=== PATIENT | female | born 1945 | race Caucasian/White ===

== ENCOUNTER 2017-12-12 02:43 | Outpatient (CLI) | payer MEDICARE, OTHER, SELFPAY ==
[2017-12-12 11:26] LABS: TSH 1.85 uIU/mL (0.358-3.74)
== END 2017-12-12 03:03 ==
PROVIDERS: PCP Family Medicine; Visit Provider Family Medicine
DX: E03.9 Hypothyroidism, unspecified (principal)
CPT/HCPCS: 36415; 84443

== ENCOUNTER → 2017-12-18 08:13 | Outpatient (BNVA) | payer MEDICARE, OTHER, SELFPAY | PROVIDERS: PCP Family Medicine; Visit Provider Nurse Practitioner Adult Health | DX: G43.009 Migraine without aura, not intractable, without status migrainosus (principal); R20.0 Anesthesia of skin; G44.40 Drug-induced headache, not elsewhere classified, not intractable | CPT/HCPCS: 64405; 99204; 99214; 99215 ==

== ENCOUNTER 2017-12-23 00:17 | Outpatient (CLI) | payer MEDICARE, OTHER, SELFPAY ==
--- NOTE | 2017-12-23 14:42 | DI.MRI_ITS ---
SYMPTOM/DIAGNOSIS: RUE NUMBNESS AND WEAKNESS, PARESTHESIAS RT UPPER EXTREMITY, R20.2 BRAIN MRI: Routine noncontrast examination was performed. Comparison head CT scan is . There is mild global cerebral atrophy. There are multiple areas of T 2 hyperintensity in the white matter on the FLAIR and T 2 weighted images, most consistent with small vessel ischemic disease. The diffusion weighted images show no evidence of an acute infarct. No evidence of intracranial hemorrhage is seen. No intracranial mass is appreciated. The ventricles are intact. The basilar cisterns are patent. The visualized paranasal sinuses are clear. The orbits and retro-orbital soft tissues are unremarkable. There is a flow void seen in the [place] of [place]. The pituitary gland is grossly unremarkable. IMPRESSION: Age related cerebral atrophy and small vessel ischemic disease. No evidence of an acute infarct.
== END 2017-12-23 00:37 ==
PROVIDERS: PCP Family Medicine; Visit Provider Nurse Practitioner Adult Health
DX: G31.1 Senile degeneration of brain, not elsewhere classified (principal); R20.0 Anesthesia of skin; R29.898 Other symptoms and signs involving the musculoskeletal system
CPT/HCPCS: 70551

== ENCOUNTER → 2018-01-06 08:50 | Outpatient (BNVA) | payer MEDICARE, OTHER, SELFPAY | PROVIDERS: PCP Family Medicine; Visit Provider Nurse Practitioner Adult Health | DX: G43.009 Migraine without aura, not intractable, without status migrainosus (principal); R53.1 Weakness | CPT/HCPCS: 99213 ==

== ENCOUNTER 2018-01-14 01:27 | Outpatient (CLI) | payer MEDICARE, OTHER, SELFPAY ==
--- NOTE | 2018-01-14 08:53 | DI.NM_ITS ---
SYMPTOMS/DIAGNOSIS: GASTROESOPHAGEAL REFLUX DISEASE, ESOPHAGITIS, K21.9, ? BILIARY DYSKINESIA HEPATOBILIARY SCAN: The examination was carried out according to the usual protocol with an intravenous administration of 4.8 mCi of technetium 99m Mebrofenin. The hepatic phase is normal. There is prompt appearance of the radiopharmaceutical in the biliary tree and subsequently the gallbladder with free flow into the small bowel. SUMMARY: Normal hepatobiliary scan.
== END 2018-01-14 01:47 ==
PROVIDERS: PCP Family Medicine; Visit Provider Nurse Practitioner Family
DX: K21.9 Gastro-esophageal reflux disease without esophagitis (principal); K20.9 Esophagitis, unspecified
CPT/HCPCS: 78227

== ENCOUNTER 2018-01-14 08:29 | Outpatient (REF) | payer MEDICARE, OTHER, SELFPAY ==
[2018-01-15 11:39] LABS: Campylobacter PCR SEE COMMENTS; Salmonella PCR SEE COMMENTS; Shiga Toxin PCR SEE COMMENTS; Shigella/Enteroinvasive Ecoli SEE COMMENTS
[2018-01-16 12:15] LABS: Helicobacter pylori Ag, Feces Negative (NEGAT)
[2018-01-17 14:37] LABS: Calprotectin 39.1 mcg/g
== END 2018-01-14 08:49 ==
LOC: LBN 08:29
PROVIDERS: PCP Family Medicine; Visit Provider Nurse Practitioner Family
DX: K21.9 Gastro-esophageal reflux disease without esophagitis (principal); R10.10 Upper abdominal pain, unspecified; K58.0 Irritable bowel syndrome with diarrhea
CPT/HCPCS: 87338; 87505; 83993; 87230; 87324

== ENCOUNTER 2019-01-19 02:13 | Outpatient (CLI) | payer MEDICARE, OTHER, SELFPAY ==
[2019-01-19 10:58] LABS: Abs Immature Grans 0.02 k/cumm (0.0-0.09); Absolute Basophil Count 0.06 k/cumm (0.0-0.2); Absolute Eosinophil Count 0.29 k/cumm (0.0-0.7); Absolute Monocyte Count 0.45 k/cumm (0.11-0.7); Absolute Neutrophil Count 3.72 k/cumm (1.2-6.7); Basophils % 0.9; Eosinophils % 4.6; HCT 43.2 % (36.0-46.0); HGB 13.5 g/dL (12.0-15.5); Immature Grans % 0.3; Lymphocytes % 28.4; Mean Corp. HGB Concentration 31.3 g/dL (32.0-36.0); Mean Corpuscular Hemoglobin 27.9 pg (27.0-33.0); Mean Corpuscular Volume 89.3 fL (80-95); Mean Platelet Volume 9.2 fL (8.0-11.0); Monocytes % 7.1; Neutrophils % 58.7; Platelet Count 320 x1000/uL (130-400); RBC 4.84 m/cumm (4.00-5.20); RBC Distribution Width 14.2 % (11.7-14.6); White Blood Cell Count 6.34 k/cumm (4.4-10.8)
[2019-01-19 11:26] LABS: ALT 19 U/L (14-59); AST 17 U/L (15-37); Albumin 3.5 g/dL (3.4-5.0); Alkaline Phosphatase 92 U/L (46-116); Anion Gap 6.2 mmol/L (3-11); BUN 11 mg/dL (7-18); Bilirubin, Total 0.3 mg/dL (0.2-1.0); CO2 30.8 mmol/L (21.0-32.0); Chloride 105 mmol/L (98-107); Glucose 89 mg/dL (70-100); Potassium 4.7 mmol/L (3.5-5.1); Sodium 142 mmol/L (136-145); Total Protein 6.8 g/dL (6.4-8.2)
== END 2019-01-19 02:33 ==
PROVIDERS: PCP Family Medicine; Visit Provider Family Medicine
DX: F32.9 Major depressive disorder, single episode, unspecified (principal); R53.83 Other fatigue; G43.909 Migraine, unspecified, not intractable, without status migrainosus
CPT/HCPCS: 36415; 80053; 84443; 85025

== ENCOUNTER 2019-02-09 10:27 | Outpatient (REF) | payer MEDICARE, OTHER, SELFPAY ==
[2019-02-10 11:49] LABS: Campylobacter PCR Negative (Negative); Salmonella PCR Negative (Negative); Shiga Toxin PCR Negative (Negative); Shigella/Enteroinvasive Ecoli Negative (Negative)
== END 2019-02-09 10:47 ==
LOC: LBN 10:27
PROVIDERS: PCP Family Medicine; Visit Provider Nurse Practitioner Family
DX: K58.9 Irritable bowel syndrome, unspecified (principal)
CPT/HCPCS: 87329; 87505; 87324

== ENCOUNTER 2019-03-16 11:45 | Outpatient (CLI) | payer MEDICARE, OTHER, SELFPAY ==
[2019-03-16 13:29] LABS: TSH 0.04 uIU/mL (0.36-3.74)
== END 2019-03-16 12:05 ==
PROVIDERS: PCP Family Medicine; Visit Provider Family Medicine
DX: E03.9 Hypothyroidism, unspecified (principal)
CPT/HCPCS: 36415; 84443

== ENCOUNTER 2019-04-30 07:35 | Outpatient (CLI) | payer MEDICARE, OTHER, SELFPAY ==
[2019-04-30 12:32] LABS: TSH 0.23 uIU/mL (0.36-3.74)
== END 2019-04-30 07:55 ==
PROVIDERS: PCP Family Medicine; Visit Provider Family Medicine
DX: E03.9 Hypothyroidism, unspecified (principal)
CPT/HCPCS: 36415; 84443

== ENCOUNTER 2019-06-10 08:02 | Outpatient (CLI) | payer MEDICARE, OTHER, SELFPAY ==
--- NOTE | 2019-06-10 08:30 | DI.RAD_ITS ---
EXAM: XR SHOULDER LT COMPLETE 2+V CLINICAL HISTORY: fall on left shoulder 3-4 weeks ago/pain ++.M25.512. TECHNIQUE: 2D digital imaging was performed. COMPARISON: RIGHT SHOULDER 1 VIEW from 02/06/2013 FINDINGS: Prior rotator cuff tear and distal clavicular resection is seen. There is spurring at the glenoid. The humeral head appears normally positioned. Visualized portions of the left ribs are unremarkable. IMPRESSION: Postsurgical and degenerative changes.. DATA REPOSITORY: RADIATION DOSE DELIVERED:
[2019-06-10 09:31] LABS: TSH 3.47 uIU/mL (0.36-3.74)
== END 2019-06-10 08:22 ==
PROVIDERS: PCP Family Medicine; Visit Provider Family Medicine
DX: M25.512 Pain in left shoulder (principal); E03.9 Hypothyroidism, unspecified; Z98.890 Other specified postprocedural states; Z91.81 History of falling
CPT/HCPCS: 36415; 73030; 84443

== ENCOUNTER 2019-10-09 03:28 | Outpatient (CLI) | payer MEDICARE, OTHER, SELFPAY ==
[2019-10-09 11:35] LABS: HCT 43.2 % (36.0-46.0); HGB 13.7 g/dL (12.0-15.5); Mean Corp. HGB Concentration 31.7 g/dL (32.0-36.0); Mean Corpuscular Hemoglobin 28.4 pg (27.0-33.0); Mean Corpuscular Volume 89.4 fL (80-95); Mean Platelet Volume 9.1 fL (8.0-11.0); Platelet Count 316 x1000/uL (130-400); RBC 4.83 m/cumm (4.00-5.20); RBC Distribution Width 13.9 % (11.7-14.6)
[2019-10-09 12:22] LABS: Iron 62 ug/dL (50-170); Total Iron Binding Capacity 319 ug/dL (250-450); Transferrin Sat 19 % (15-50)
[2019-10-09 12:35] LABS: Ferritin 30 ng/mL (8-252); Magnesium 2.4 mg/dL (1.8-2.4); TSH 0.58 uIU/mL (0.36-3.74)
== END 2019-10-09 03:48 ==
PROVIDERS: PCP Family Medicine; Visit Provider Family Medicine
DX: Z86.2 Personal history of diseases of the blood and blood-forming organs and certain disorders involving the immune mechanism (principal); E83.42 Hypomagnesemia; E03.9 Hypothyroidism, unspecified; R53.83 Other fatigue
CPT/HCPCS: 36415; 85027; 82728; 83540; 83550; 83735; 84443

== ENCOUNTER 2020-02-11 19:36 | Emergency (ER) | payer MEDICARE, OTHER, SELFPAY ==
[2020-02-11 19:41] VITALS: BP 181/66; PULSE 104; RESP 19; TEMP 36.8; O2SAT 98
[2020-02-11] MEDS: Ibuprofen 600 MG TAB PO (20:01)
--- NOTE | 2020-02-11 20:16 | W.ED.GENAD ---
Discharge Plan Disposition Patient Disposition: HOME Condition: Stable Discharge Details Clinical Impression: Avulsion fracture of ankle Primary Care Provider: Natalie Hoang ED Provider: Isa Jansen Home Meds and New Rx's Prescriptions: Continued sumatriptan succinate 100 mg tablet See Rx Instructions PO .COMPLEX Qty: 20 RF: 4 rabeprazole 20 mg tablet,delayed release (DR/EC) 20 mg PO BID Qty: 180 RF: 4 famotidine 20 mg tablet 20 mg PO QHS Qty: 90 RF: 1 acetaminophen [Mapap (acetaminophen)] 500 MG capsule 500 - 1,000 mg PO Q6H PRN PRNRF: 0 levothyroxine 75 mcg capsule 75 mcg PO DAILY Qty: 20 RF: 0 Discharge Instructions Instructions: Avulsion Fracture (ED) Additional Instructions: Wear ankle splint for support Crutches for non-weightbearing Elevate your leg is much as possible throughout the day to reduce swelling apply ice 20 minutes 4-5 times daily for the first 2 days then you can use heat or ice You can add ibuprofen 600 mg 4 times daily with food for the next 5 days then as needed for pain Referrals: ORTHOPAEDICS,[facility] [OTHER] - (call in am for a follow up appointment) Natalie Hoang MD [Primary Care Provider] - Medical Decision Making Mechanical fall. Tylenol prior to arrival. X-ray to right ankle and foot. Ice pack applied. Provided 600 mg oral ibuprofen xray ankle and foot right: IMPRESSION: No fractures or dislocations within right ankle. Likely small avulsion fracture involving calcaneus. Small osseous fragment adjacent to the calcaneus, best seen on frontal view, likely an avulsion fracture. No other acute fractures identified. ankle splint applied, crutches for non weight bearing. will f/u with ortho Medical Records Medical records reviewed: Yes I reviewed the patient's medical records. HPI General Mode of arrival: wheelchair. Date/Time Provider Initiated Documentation: 02/11/20 19:36. Limitations to Documentation: no limitations. Information obtained by: patient. HPI Narrative: This is a 75-year-old female patient who had a mechanical fall at home with injury to her right lateral ankle and foot. There were no other injuries noted. She is unable to bear weight due to the pain. There is no obvious deformity. She took acetaminophen prior to arrival with little improvement in her pain Related Data Home Medications Medication Instructions Recorded Confirmed acetaminophen [Mapap 500 - 1,000 mg PO Q6H PRN PRN 08/05/13 02/11/20 (acetaminophen)] tab-cap famotidine 20 mg tablet 20 mg PO QHS #90 tab 08/17/19 02/11/20 rabeprazole 20 mg tablet,delayed 20 mg PO BID #180 tab 08/17/19 02/11/20 release levothyroxine 75 mcg capsule 75 mcg PO DAILY #20 cap 10/10/19 02/11/20 sumatriptan succinate 100 mg tablet See Rx Instructions PO .COMPLEX 10/26/19 02/11/20 #20 tab Previous Rx's Medication Instructions Recorded famotidine 20 mg tablet 20 mg PO QHS #90 tab 08/17/19 rabeprazole 20 mg tablet,delayed 20 mg PO BID #180 tab 08/17/19 release levothyroxine 75 mcg capsule 75 mcg PO DAILY #20 cap 10/10/19 sumatriptan succinate 100 mg tablet See Rx Instructions PO .COMPLEX 10/26/19 #20 tab Allergies Allergy/AdvReac Type Severity Reaction Status Date / Time Penicillins Allergy Severe THROAT Verified 02/11/20 19:47 SWELLS General Stated Complaint: Orthopedic LES: 4 Review of Systems Constitutional Constitutional: Denies fever(s) ENT Ears, Nose, Mouth, and Throat: Denies vertigo and Denies dizziness Cardiovascular Cardiovascular: Denies syncope, Denies lightheadedness and Denies dyspnea Respiratory Respiratory: Denies cough and Denies dyspnea Gastrointestinal Gastrointestinal: Denies abdominal pain and Denies nausea Musculoskeletal Musculoskeletal: Reports abnormal gait, Denies deformity, Reports arthralgias, Reports numbness and Reports tingling Integumentary/Breasts Skin/Breast: Denies rash and Denies sores Neurologic Neurologic: Reports abnormal gait, Denies vertigo, Denies dizziness, Denies syncope, Reports numbness and Reports tingling [facility] Medical History (Updated 02/11/20 @ 20:50 by Isa Jansen NP) Depressive disorder (07/17/07) GERD (gastroesophageal reflux disease) H/O gastroesophageal reflux (GERD) Hypothyroidism Low back pain radiating to both legs (12/09/14) mri : left neural foraminal narrowing L5S1/apparent syrinx of lower thoracic cord- no resp. PT/ :no spinal stenosi/not sx Migraine headache Musculoskeletal disorder of neck (06/22/13) Neck fullness (11/25/13) right scalene fat pad/ eval. [facility] Obstructive sleep apnea (08/12/15) 2018 pt declines fup Periodic limb movement disorder (08/12/15) Rotator cuff tear (01/26/13) Repair right rotator cuff by Dr. Liam Garcia 01-26-2013. Status post left rotator cuff repair with AC joint decompression with distal clavical excision 01/27/2008. S/P subsequent left shoulder manipulation post surgery to relieve her restrictive motion. S/P right shoulder manipulation on 10-22-2012 for adhesive capsulitis. Surgical History Abdominal hysterectomy 1967 EGD - MAC 01/21/14 [facility] extraction of teeth approx 1952 Laser eye surgery Right, 2002. Repair, Rotator Cuff left, December, Shoulder Manipulation (10/22/12) Right Family History (Updated 01/15/19 @ 10:20 by Charanjit Serna) Mother , age 72 Essential hypertension Breast cancer Sister , age 53 Breast cancer Lung cancer Sister , age 74 Liver cancer Lung cancer Father , age 72 Lung cancer Brother Diabetes Essential hypertension Heart disease Maternal Grandfather , age 72 Lung cancer Pancreatic cancer Paternal Grandfather , age 42 Heart disease Maternal Grandmother , age 81 Diabetes Essential hypertension Stroke Breast cancer Paternal Grandmother No problems noted. Son No problems noted. Daughter No problems noted. Daughter No problems noted. Social History (Updated 01/15/19 @ 10:07 by Charanjit Serna) Smoking/Tobacco Use Status: Never Smoking risk assessment performed?: Yes Alcohol Intake: never Drug use: Never Substance use type: does not use Caregiver/Support person: No Household members: spouse Housing: house Communication Needs: None Do you need help understanding health information?: Rarely Pets and animals: No Sexually active: No Current gender identity: decline to answer What is your relationship status?: How often do you talk on the phone with friends or family?: three or more times per week How often do you get together with friends or relatives?: three or more times per week How often do you attend sikh or anabaptism services?: decline to answer Do you belong to any clubs or organized social groups?: yes Panel score (0-1 are the most socially isolated patients): 3 What type of physical activity do you participate in: decline to answer Duration: decline to answer Frequency: decline to answer Irene/Orthodoxy: Taoism Special irene needs: No Seatbelt use: always Helmet use: Yes Helmet use: sometimes 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 Do you feel safe at home: Yes Do you feel safe in your relationship?: Yes Exam Const General: cooperative, healthy appearing, comfortable and no acute distress HENMT Head: normal to inspection, normocephalic and atraumatic Mouth: oral mucosae normal Cardio Rate: regular rate (Strong pedal pulse) Rhythm: regular rhythm Skin General skin exam: ecchymosis (Over fifth metatarsal) Lesions: lesions noted Rashes: rash noted Neuro General: patient alert, patient awake, patient oriented x3 and moves all extremities Extrem Right lower extremity: edema, ankle Details: swelling Details: laterally and ecchymosis and foot Details: edema and ecchymosis (Laterally) Course Vital Signs Vital signs: Vital Signs Temperature 36.8 C 02/11/20 19:41 Pulse 104 H 02/11/20 19:41 Respiratory Rate 02/11/20 19:41 Blood Pressure 181/66 H 02/11/20 19:41 Pulse Oximetry 98 02/11/20 19:41 Temperature 36.8 C 02/11/20 19:41 Temperature Source Skin 02/11/20 19:41 Pulse 104 H 02/11/20 19:41 Respiratory Rate 19 02/11/20 19:41 Respiratory Effort Non-Labored 02/11/20 19:45 Blood Pressure 181/66 H 02/11/20 19:41 Blood Pressure Position Sitting 02/11/20 19:41 Pulse Oximetry 98 02/11/20 19:41 Oxygen Delivery Method Room Air 02/11/20 19:41 Oxygen Flow Rate 0 02/11/20 19:41 Pain Level 7 02/11/20 20:01
--- NOTE | 2020-02-11 20:22 | DI.RAD_ITS ---
EXAM: XR ANKLE RT COMPLETE and XR foot RT complete CLINICAL HISTORY: trauma, pain. TECHNIQUE: 2D digital imaging was performed. COMPARISON: CR,XR XR FOOT RT COMPLETE from 02/11/2020 FINDINGS: BONES: There is a mildly displaced fracture of the anterolateral aspect of the calcaneus. No other f racture or dislocation is identified. No bony destructive lesion is seen. JOINTS: The ankle mortise is normally aligned. Mild degenerative changes are seen at the 1st MTP join t. SOFT TISSUE: Normal. IMPRESSION: Mildly displaced fracture of the anterolateral aspect of the calcaneus. DATA REPOSITORY: RADIATION DOSE DELIVERED:
--- NOTE | 2020-02-11 20:35 | DI.VRAD_ITS ---
PROCEDURE INFORMATION: Exam: XR Right Foot Complete Exam date and time: 02/11/2020 8:23 PM Age: 75 years old Clinical indication: Injury or trauma; Sprain or strain; Injury date: 02/11/20; Injury details: [place] a pop in right ankle/foot TECHNIQUE: Imaging protocol: XR Right foot. Views: 3 or more views. COMPARISON: No relevant prior studies available. FINDINGS: Bones/joints: Osseous fragment adjacent to the calcaneus, seen on the frontal view, lateral aspect, likely small avulsion fracture. Os navicularis versus old fracture of the navicular bone. Degenerative changes at the 1st MTP joint. Soft tissues: Grossly unremarkable. IMPRESSION: Small osseous fragment adjacent to the calcaneus, best seen on frontal view, likely an avulsion fracture. No other acute fractures identified. Dictated and Authenticated by: Piero Lang MD. Ordering:MARYBETH Moss MD
--- NOTE | 2020-02-11 20:38 | DI.VRAD_ITS ---
PROCEDURE INFORMATION: Exam: XR Right Ankle Exam date and time: 02/11/2020 7:51 PM Age: 75 years old Clinical indication: Injury or trauma; Sprain or strain; Injury date: 02/11/20; Injury details: [place] a pop in right ankle/foot TECHNIQUE: Imaging protocol: XR Right ankle. Views: 3 or more views. COMPARISON: No relevant prior studies available. FINDINGS: Bones/joints: Likely small avulsion fracture of the calcaneus, lateral aspect. No fractures or dislocations within the right ankle. Soft tissues: Mild swelling/infiltration of the soft tissues distal to the lateral malleolus. IMPRESSION: No fractures or dislocations within right ankle. Likely small avulsion fracture involving calcaneus. Dictated and Authenticated by: Piero Lang MD. Ordering:MARYBETH Moss MD
[2020-02-11 20:42] VITALS: BP 159/71; PULSE 88; O2SAT 95
[2020-02-11 20:43] VITALS: O2SAT 95
[2020-02-11 20:47] VITALS: BP 163/77; PULSE 85; O2SAT 96
== END 2020-02-11 21:05 | disposition home or self-care (01) ==
PROVIDERS: Emergency Provider Nurse Practitioner Acute Care; PCP Family Medicine
DX: S92.021A Displaced fracture of anterior process of right calcaneus, initial encounter for closed fracture (principal); W07.XXXA Fall from chair, initial encounter
CPT/HCPCS: 99284; 73610; 73630

== ENCOUNTER → 2020-02-18 10:49 | Outpatient (BNVA) | payer MEDICARE, OTHER, SELFPAY | PROVIDERS: PCP Family Medicine; Referring Provider Student in an Organized Health Care Education/Training Program; Visit Provider Orthopaedic Surgery | DX: S92.001A Unspecified fracture of right calcaneus, initial encounter for closed fracture (principal); X50.9XXA Other and unspecified overexertion or strenuous movements or postures, initial encounter | CPT/HCPCS: 99213; 99214 ==

== ENCOUNTER 2020-03-18 11:57 | Outpatient (CLI) | payer MEDICARE, OTHER, SELFPAY | END 2020-03-18 12:17 | PROVIDERS: PCP Family Medicine; Referring Provider Family Medicine; Visit Provider Student in an Organized Health Care Education/Training Program | DX: S92.001D Unspecified fracture of right calcaneus, subsequent encounter for fracture with routine healing (principal); X58.XXXD Exposure to other specified factors, subsequent encounter | CPT/HCPCS: 99213 ==

== ENCOUNTER 2020-11-03 04:45 | Outpatient (CLI) | payer MEDICARE, OTHER, SELFPAY ==
[2020-11-03 10:04] LABS: HCT 44.4 % (36.0-46.0); HGB 13.7 g/dL (11.2-15.7); MCH 28.3 pg (27.0-33.0); MCHC 30.9 % (32.0-36.0); MCV 91.7 fL (80-95); MPV 8.9 fL (8.0-11.0); Platelet Count 266 10^3/uL (130-400); RBC 4.84 10^6/uL (3.93-5.22); RDW 13.2 % (11.7-14.6); RDW-SD 44.9 fL; WBC 7.36 10^3/uL (4.4-10.8)
[2020-11-03 11:38] LABS: Iron 73 ug/dL (50-170); Total Iron Binding Capacity 343 ug/dL (250-450); Transferrin Sat 21 % (15-50)
[2020-11-03 11:44] LABS: ALT 21 U/L (14-59); AST 17 U/L (15-37); Albumin 3.7 g/dL (3.4-5.0); Alkaline Phosphatase 89 U/L (46-116); Anion Gap 7.9 mmol/L (3-11); BUN 9 mg/dL (7-18); Bilirubin, Total 0.3 mg/dL (0.2-1.0); CO2 30.1 mmol/L (21.0-32.0); CREATININE 0.8 mg/dL (0.55-1.02); Calcium 8.9 mg/dL (8.5-10.1); Chloride 105 mmol/L (98-107); Ferritin 51 ng/mL (8-252); GGT 24 U/L (5-55); Glucose 91 mg/dL (74-106); Magnesium 2.3 mg/dL (1.8-2.4); Potassium 4.5 mmol/L (3.5-5.1); Sodium 143 mmol/L (136-145); TSH 1.93 uIU/mL (0.36-3.74); Total Protein 6.8 g/dL (6.4-8.2)
== END 2020-11-03 04:46 | disposition home or self-care (01) ==
LOC: LBO 04:45
PROVIDERS: PCP Family Medicine; Visit Provider Family Medicine
DX: E03.9 Hypothyroidism, unspecified (principal); E61.1 Iron deficiency; E83.42 Hypomagnesemia; R10.9 Unspecified abdominal pain; K21.9 Gastro-esophageal reflux disease without esophagitis
CPT/HCPCS: 36415; 80053; 85027; 82728; 82977; 83540; 83550; 83735; 84443

== ENCOUNTER 2021-09-01 19:18 | Emergency (ER) | payer MEDICARE, OTHER, SELFPAY ==
[2021-09-01] VITALS (43 sets, daily range): BP systolic 114–162; BP diastolic 61–91; PULSE 86–112; RESP 9–24; TEMP 37.1; O2SAT 93–99
--- NOTE | 2021-09-01 19:37 | W.ED.GENAD ---
Discharge Plan Disposition Patient Disposition: HOME Condition: Stable Discharge Details Clinical Impression: URI (upper respiratory infection), Nausea Primary Care Provider: Dinora Fan ED Provider: Sonam Breen Home Meds and New Rx's Prescriptions: New ondansetron 4 mg tablet,disintegrating 4 mg PO Q6H PRN (Reason: nausea and vomiting) Qty: 10 0RF benzonatate 100 mg capsule 100 mg PO TID PRN (Reason: cough) Qty: 14 0RF Continued Shingrix (PF) 50 mcg/0.5 mL suspension for reconstitution 0.5 ml IM ONCE Qty: 1 1RF Rx Instructions: take the first dose and repeat 2 to 6 months later sumatriptan succinate 100 mg tablet See Rx Instructions PO .COMPLEX Qty: 20 4RF Rx Instructions: take 1 tab at onset of headache; if no relief, may repeat 1 tab after at least 2 hrs; max = 2 tabs/24 hrs PO amlodipine 5 mg tablet 5 mg PO DAILY Qty: 90 3RF levothyroxine 75 mcg capsule 75 mcg PO DAILY Qty: 90 3RF Rx Instructions: take one capsule daily rabeprazole 20 mg tablet,delayed release (DR/EC) 20 mg PO BID Qty: 180 3RF Rx Instructions: take one tablet twice a day No Action nystatin 100,000 unit/mL suspension 500,000 unit buccal QID Qty: 480 0RF Rx Instructions: administer 1/2 of dose in each side of the mouth, hold in mouth as long as possible, then spit Discharge Instructions Instructions: Benzonatate (By mouth), Ondansetron (By mouth), Upper Respiratory Infection (ED), Acute Nausea and Vomiting (ED) Additional Instructions: Your labs and imaging are reassuring here today. Your COVID-negative. Is likely viral illness. Please continue to encourage hydration. You may use Tylenol and/or ibuprofen as needed for discomfort. You may use the Tessalon Perles to help with cough. Zofran as prescribed to help with your nausea. If you develop chest pain or shortness of breath, inability stay hydrated or other new/worsening symptom please seek care urgently once again. Otherwise, please follow-up with primary care next week for reevaluation. Referrals: Dinora Fan MD [Primary Care Provider] - Discharge Data Discharge Date/Time-TO BE ENTERED AT DEPARTURE: 09/01/21 23:54 Medical Decision Making Patient is a pleasant 76-year-old female presenting today with chief complaint of nausea, vomiting, cough, fatigue, sore throat general malaise. She reports that symptoms began 6 days ago. Initially was having nausea and vomiting last weekend. States the first day of vomiting the vomit was darker in color. No masoud red blood. Denies any since then. No melena or bright red blood per rectum. States that she chronically has abdominal pain, this has been unchanged. She associates with significant GERD for which she [place] [facility] [place] No change or missed doses of her GERD medication. She denies any fevers or chills. States that she has been slightly short of breath associated with cough. Patient was initially seen at urgent care, sent patient was noted to appear slightly dehydrated tachycardia epigastric discomfort. She describes general body aches for which she has not taken any analgesics. On exam, patient appears unwell but not acutely toxic. She appears dehydrated and has dry cough. She is tachycardic at 112 but otherwise hemodynamically stable. Dry on ENT exam, otherwise normal. Lungs cleear, no murmurs. Abdomen tender in epigastric area which she states in unchagned from GI palpates. No LE edema Paitent's hx and exam is most consistent with respiratory infection. No SOB or signficant risk factors for PE, nor does the rest of her story support this. She has had her cough for 6 days, non exertion, low suspicion for ACS. Her lungs are clear but considered infectious etiology such as bacterial pneumonia and iwll obtaitn cxr. Will hydrate the patient. Tamar abdominal discomfort appears to be chronic. However, location and nausea does put pancreatitis on my ddx, will screen with lipase. will give PPI. FINDINGS: Airway: Patent Lungs: Unremarkable. No consolidation. Pleural spaces: Unremarkable. No pleural effusion. No pneumothorax. Heart/Mediastinum: Unremarkable. No cardiomegaly. Bones/joints: Tendon anchors in the right humeral head and left humeral head. No acute skeletal abnormality or aggressive osseous lesion. Bilateral distal clavicular osteolysis is noted. IMPRESSION: No acute thoracic pathology. Labs reviewed, no signficant abnormality. Given length of time and lack of CP, I do not see need for repeat troponin. Her HR is down after APAP, fluids and PPI. Will challenge orally. Patient and I discussed disposition. at bedside who seems very supportive. She is eager to go home, feels improved. She will continue supportive care. Strict return precautions discussed. Advised lose f/u with PCP. Will continue with zofran if her nausea returns. All of her questions and concerns were addressed, sh eis in agreement with this plan. HPI General Date/Time Provider Initiated Documentation: 09/01/21 19:21. Limitations to Documentation: no limitations. Information obtained by: patient, family and RN notes reviewed. History of Present Illness 76 year old F presents to the emergency department with the chief complaint of URI, malaise, chronic abdominal pain, described as moderate, Quality is described as aching (abdomen is uncomfortable but no acute change in pain, is here for her URI sxs), and is localized to the abdomen. Patient reports no radiation. Patient started experiencing this unknown (abdominal pain chronic, unchanged, URI x 6 days) and it has been intermittent. No relieving factors improve symptom(s), No exacerbating factors reported . Patient notes cough, loss of appetite, malaise and nausea/vomiting; denies chest pain, fever/chills, rash, shortness of breath and weakness. Patient did receive the following treatments prior to arrival, none Related Data Home Medications Medication Instructions Recorded Confirmed varicella-zoster glycoE [id number] 0.5 ml IM ONCE #1 ea 10/31/20 09/06/21 adj(PF) 50 mcg/0.5 mL IM susp, kit (Shingrix (PF)) amlodipine 5 mg tablet 5 mg PO DAILY #90 tabs 05/02/21 09/06/21 levothyroxine 75 mcg capsule 75 mcg PO DAILY #90 caps 06/30/21 09/06/21 sumatriptan succinate 100 mg tablet See Rx Instructions PO .COMPLEX 07/31/21 09/06/21 #20 tabs rabeprazole 20 mg tablet,delayed 20 mg PO BID #180 tabs 08/29/21 09/06/21 release benzonatate 100 mg capsule 100 mg PO TID PRN cough #14 caps 09/01/21 09/06/21 ondansetron 4 mg disintegrating 4 mg PO Q6H PRN nausea and 09/01/21 09/06/21 tablet vomiting #10 tabs nystatin 100,000 unit/mL oral 500,000 unit (5 mL) buccal QID 09/04/21 09/06/21 suspension #480 mL Previous Rx's Medication Instructions Recorded varicella-zoster glycoE vacc-[id number] 0.5 ml IM ONCE #1 ea 10/31/20 adj(PF) 50 mcg/0.5 mL IM susp, kit (Shingrix (PF)) amlodipine 5 mg tablet 5 mg PO DAILY #90 tabs 05/02/21 levothyroxine 75 mcg capsule 75 mcg PO DAILY #90 caps 06/30/21 sumatriptan succinate 100 mg tablet See Rx Instructions PO .COMPLEX 07/31/21 #20 tabs rabeprazole 20 mg tablet,delayed 20 mg PO BID #180 tabs 08/29/21 release benzonatate 100 mg capsule 100 mg PO TID PRN cough #14 caps 09/01/21 ondansetron 4 mg disintegrating 4 mg PO Q6H PRN nausea and 09/01/21 tablet vomiting #10 tabs nystatin 100,000 unit/mL oral 500,000 unit (5 mL) buccal QID 09/04/21 suspension #480 mL Allergies Allergy/AdvReac Type Severity Reaction Status Date / Time Penicillins Allergy Severe THROAT Verified 09/06/21 16:24 SWELLS General Stated Complaint: GenMedical LES: 3 Review of Systems Constitutional Constitutional: Reports as per HPI and Denies headache(s) Eyes Eyes: Reports as per HPI, Denies eye discharge and Denies irritation ENT Ears, Nose, Mouth, and Throat: Reports as per HPI and Denies headache(s) Cardiovascular Cardiovascular: Reports as per HPI, Denies chest pain and Denies dyspnea Respiratory Respiratory: Reports as per HPI and Denies dyspnea Gastrointestinal Gastrointestinal: Reports as per HPI Integumentary/Breasts Skin/Breast: Reports as per HPI and Denies rash Neurologic Neurologic: Reports as per HPI and Denies headache(s) [facility] All Active Problems (Updated 09/06/21 @ 18:06 by Nikko Lambert MD) Essential hypertension (Acute) Sliding hiatal hernia (Acute ~01/2018[place] [facility] Periodic limb movement disorder (Acute 08/12/15) Obstructive sleep apnea (Chronic 08/12/15) 2018 pt declines fup Neck fullness (Acute 11/25/13) right scalene fat pad/ eval. [facility] Low back pain radiating to both legs (Acute 12/09/14) mri : left neural foraminal narrowing L5S1/apparent syrinx of lower thoracic cord- no resp. PT/ :no spinal stenosi/not sx Hypothyroidism (Chronic) Depressive disorder (Chronic 07/17/07) Migraine headache (Chronic) GERD (gastroesophageal reflux disease) (Chronic) Surgical History Abdominal hysterectomy 1967 EGD - MAC 01/21/[place] [facility] [place] of teeth approx 1952 Laser eye surgery Right, 2002. Repair, Rotator Cuff left, December, Shoulder Manipulation (10/22/12) Right Family History Mother , age 72 Essential hypertension Breast cancer Sister , age 53 Breast cancer Lung cancer Sister , age 74 Liver cancer Lung cancer Father , age 72 Lung cancer Brother Diabetes Essential hypertension Heart disease Maternal Grandfather , age 72 Lung cancer Pancreatic cancer Paternal Grandfather , age 42 Heart disease Maternal Grandmother , age 81 Diabetes Essential hypertension Stroke Breast cancer Paternal Grandmother No problems noted. Son No problems noted. Daughter No problems noted. Daughter No problems noted. Social History Smoking/Tobacco Use Status: Never Smoking risk assessment performed?: Yes Alcohol Intake: never Drug use: Never Substance use type: does not use Household members: spouse Housing: house Communication Needs: None Do you need help understanding health information?: Rarely Pets and animals: No Sexually active: No Current gender identity: female What is your relationship status?: How often do you talk on the phone with friends or family?: three or more times per week How often do you get together with friends or relatives?: twice per week How often do you attend pentecostalism or taoist services?: decline to answer Do you belong to any clubs or organized social groups?: yes Panel score (0-1 are the most socially isolated patients): 3 Irene/Congregation: Congregational Special irene needs: No Seatbelt use: always Drive intox or ride w/intox regional driver: No Do you feel safe at home: Yes Do you feel safe in your relationship?: Yes Exam Const General: cooperative, healthy appearing, uncomfortable (coughing, appears fatigued, no SOB), no acute distress, well developed, well groomed and not in distress Nutritional Appearance: well nourished and overweight Orientation: alert and awake [facility] Head: normal to inspection, normocephalic and atraumatic Ears: hearing grossly normal bilaterally, external ears normal and TM's normal bilaterally General nose exam: external nose normal and nares normal Face and sinus: normal facial exam, sinuses nontender and face symmetric Mouth: oral mucosae normal, lip normal, tongue normal, oropharynx normal and mucous membranes dry (appears dry) Teeth and gingiva: dentition normal Throat: posterior oropharynx normal, tonsils normal and uvula midline Eyes General: appearance normal, both eyes and all related structures Neck Neck: normal visual inspection, full ROM, no lymphadenopathy and no meningeal signs Resp Effort & Inspection: normal respiratory effort, able to speak in complete sentences and no respiratory distress Auscultation: clear to auscultation bilaterally, no rales, no rhonchi and no wheezes Cardio Rate: tachycardic Rhythm: regular rhythm Heart Sounds: S1 normal and S2 normal GI Inspection: normal to inspection Palpation: soft, no hepatosplenomegaly, no masses and tender in the epigastrum (mild discomfort, patient report chronic ); with no rebound tenderness Percussion: normal to percussion Auscultation: normal bowel sounds Skin General skin exam: no rashes or lesions noted Neuro General: patient alert and patient awake Cognition: normal cognition Speech: speech normal Gait: normal gait Extrem General: normal to inspection, no pedal edema, no calf tenderness and normal gait Psych Appearance: grossly normal and well kempt Mental Status: mental status grossly normal Speech and Movement: speech and movement normal Course Vital Signs Vital signs: Vital Signs Temperature 37.1 C 09/01/21 19:25 Pulse 112 H 09/01/21 19:25 Respiratory Rate 21 09/01/21 19:25 Blood Pressure 114/90 09/01/21 19:25 Pulse Oximetry 99 09/01/21 19:25 Temperature 37.1 C 09/01/21 19:25 Temperature Source Skin 09/01/21 19:25 Pulse 112 H 09/01/21 19:25 Respiratory Rate 21 09/01/21 19:25 Blood Pressure 114/90 09/01/21 19:25 Blood Pressure Position Sitting 09/01/21 19:25 Pulse Oximetry 99 09/01/21 19:25 Oxygen Delivery Method Room Air 09/01/21 19:25 Oxygen Flow Rate 0 09/01/21 19:25 Pain Level 0 09/01/21 19:25
--- NOTE | 2021-09-01 19:45 | DI.RAD_ITS ---
Exam(s) XR PORTABLE CHEST AP EXAM: XR PORTABLE CHEST AP CLINICAL HISTORY: cough. TECHNIQUE: 2D digital imaging was performed. COMPARISON: CR CHEST 2 VIEWS PA,LAT from 04/22/2013 FINDINGS: Single AP portable view. Evidence of rotator cuff surgery in both shoulders again noted. Heart size is upper normal. The mediastinum is not widened. Right lung is clear. Small nodular density behind the left side of the heart noted, not evident on t he prior study. No pleural effusions. No pulmonary edema IMPRESSION: In the left lung there is a noncalcified nodular density measuring 1.2 by 0.9 cm behind the left hear t border, not evident on the prior study. Recommend nonportable PA and lateral views when clinically possible or alternatively CT scan for added sensitivity and specificity. DATA REPOSITORY: RADIATION DOSE DELIVERED: All CT scans at this facility use at least one of these dose optimization techniques: automated exposure control; mA and/or kV adjustment per patient size (includes targeted e xams where dose is matched to clinical indication); or iterative reconstruction.
[2021-09-01 20:14] LABS: Source Nasal/Nares
[2021-09-01 20:32] LABS: ALT 26 U/L (14-59); AST 22 U/L (15-37); Albumin 3.5 g/dL (3.4-5.0); Alkaline Phosphatase 95 U/L (46-116); Anion Gap 6.2 mmol/L (3-11); BUN 9 mg/dL (7-18); Bilirubin, Total 0.2 mg/dL (0.2-1.0); CO2 28.8 mmol/L (21.0-32.0); CREATININE 0.9 mg/dL (0.55-1.02); Calcium 8.4 mg/dL (8.5-10.1); Chloride 105 mmol/L (98-107); Glucose 86 mg/dL (74-106); Magnesium 2.2 mg/dL (1.8-2.4); Potassium 3.8 mmol/L (3.5-5.1); Sodium 140 mmol/L (136-145); Total Protein 7.3 g/dL (6.4-8.2); Troponin I < 50 ng/L (<or=60)
[2021-09-01 20:33] LABS: Lipase 22 U/L (73-393)
[2021-09-01 20:44] LABS: Abs Immature Grans 0.02 10^3/uL (0.0-0.06); Absolute Basophil Count 0.03 10^3/uL (0.0-0.2); Absolute Eosinophil Count 0.13 10^3/uL (0.0-0.7); Absolute Lymphocyte Count 1.26 10^3/uL (1.2-3.4); Absolute Monocyte Count 0.75 10^3/uL (0.1-0.8); Absolute Neutrophil Count 2.85 10^3/uL (1.2-6.7); Basophils % 0.6; Eosinophils % 2.6; HCT 45.5 % (36.0-46.0); HGB 13.8 g/dL (11.2-15.7); Immature Grans % 0.4; MCH 27.7 pg (27.0-33.0); MCHC 30.3 % (32.0-36.0); MCV 91 fL (80-95); MPV 8.8 fL (8.0-11.0); Monocytes % 14.9; Neutrophils % 56.5; Platelet Count 206 10^3/uL (130-400); RBC 4.99 10^6/uL (3.93-5.22); RDW 13.5 % (11.7-14.6); WBC 5.04 10^3/uL (4.4-10.8)
[2021-09-01 21:11] LABS: COVID-19 PCR Negative (Negative)
--- NOTE | 2021-09-01 21:23 | DI.VRAD_ITS ---
PROCEDURE INFORMATION: Exam: XR Chest Exam date and time: 09/01/2021 8:36 PM Age: 76 years old Clinical indication: Cough TECHNIQUE: Imaging protocol: XR of the chest. Views: 1 view. COMPARISON: CR XR SHOULDER LT COMPLETE 2+V 06/10/2019 8:11 AM FINDINGS: Airway: Patent Lungs: Unremarkable. No consolidation. Pleural spaces: Unremarkable. No pleural effusion. No pneumothorax. Heart/Mediastinum: Unremarkable. No cardiomegaly. Bones/joints: Tendon anchors in the right humeral head and left humeral head. No acute skeletal abnormality or aggressive osseous lesion. Bilateral distal clavicular osteolysis is noted. IMPRESSION: No acute thoracic pathology. Dictated and Authenticated by: Rashard Flores MD. Ordering:JASON Masters MD
[2021-09-01] MEDS: Pantoprazole 40 MG VIAL IVP (21:48)
[2021-09-01] MEDS: Normal Saline 1,000 ML 1000 ML IV (21:48)
[2021-09-01] MEDS: ACETAMINOPHEN 1,000 MG/100 ML BTL 400 MG IVPB (21:48)
[2021-09-01] MEDS: Ondansetron 4 MG/2 ML VIAL IVP (21:48)
[2021-09-01 23:05] LABS: Troponin I < 50 ng/L (<or=60)
[2021-09-01] MEDS: Benzonatate 100 MG CAP PO (23:44)
[2021-09-01] MEDS: Ondansetron O.D.T. 4 MG TABEF, 3 TABS/BTL PO (23:44)
== END 2021-09-01 23:54 | disposition home or self-care (01) ==
PROVIDERS: Emergency Provider Physician Assistant; PCP Family Medicine
DX: R11.2 Nausea with vomiting, unspecified; J06.9 Acute upper respiratory infection, unspecified; R05.1 Acute cough
CPT/HCPCS: 36415; 80053; 83690; 87635; 96361; 96365; 99283; 99284; 71045; 83735; 84484; 85025; 87070; J0131; J2405

== ENCOUNTER 2021-11-03 01:09 | Outpatient (CLI) | payer MEDICARE, OTHER, SELFPAY ==
[2021-11-03 12:48] LABS: Anion Gap 8.2 mmol/L (3-11); BUN 10 mg/dL (7-18); CO2 27.8 mmol/L (21.0-32.0); CREATININE 0.7 mg/dL (0.55-1.02); Calcium 8.8 mg/dL (8.5-10.1); Chloride 104 mmol/L (98-107); Glucose 90 mg/dL (74-106); Potassium 4.3 mmol/L (3.5-5.1); Sodium 140 mmol/L (136-145); TSH (W/Ref FT4) 0.67 uIU/mL (0.36-3.74)
== END 2021-11-03 01:10 | disposition home or self-care (01) ==
LOC: LOS 01:09
PROVIDERS: PCP Family Medicine; Visit Provider Family Medicine
DX: E03.9 Hypothyroidism, unspecified (principal); I10 Essential (primary) hypertension
CPT/HCPCS: 36415; 80048; 84443

== ENCOUNTER 2022-09-15 22:51 | Day surgery (SDC) | payer MEDICARE, OTHER, SELFPAY ==
[2022-09-15] VITALS (10 sets, daily range): BP systolic 160–204; BP diastolic 80–112; PULSE 91–119; RESP 10–29; TEMP 36.4; O2SAT 95–98
--- NOTE | 2022-09-15 23:00 | DI.RAD_ITS ---
Exam(s) XR CHEST 1V IN DI DEPT EXAM: XR CHEST 1V IN DI DEPT CLINICAL HISTORY: chest pain. TECHNIQUE: 2D digital imaging was performed. COMPARISON: CR,XR XR PORTABLE CHEST AP from 09/01/[address] ABDOMEN PELVIS W from 09/16/2022 FINDINGS: Single AP portable view. Mild cardiomegaly again noted. Moderate-large retrocardiac hiatal hernia again evident. No obvious new infiltrates nor pleural effusions. No pulmonary edema. No pneumothorax. IMPRESSION: Mild cardiomegaly. No acute pulmonary findings. Moderate-large hiatal hernia again noted. DATA REPOSITORY: RADIATION DOSE DELIVERED:
--- NOTE | 2022-09-15 23:00 | RT.EKG_ITS ---
APPROVED REPORT Exam: Resting ECG Reason for Exam: chest pain Patient Location: E HR:102 bpm ECG Measurements Heart Rate 102 AXIS HI 179 P 75 QRSd 80 QRS -58 QT 366 T 45 QTc 479 Conclusion Sinus tachycardia...rate> 99 Probable left atrial enlargement...P >50mS, <-0.10mV V1 Inferior infarct, old...Q >35mS, II III aVF Consider anterior infarct...Q >30mS in V2-V5
--- NOTE | 2022-09-15 23:00 | DI.CT_ITS ---
Exam(s) CT ABDOMEN PELVIS W EXAM: CT ABDOMEN PELVIS W CLINICAL HISTORY: vomiting epigastric pain. TECHNIQUE: Imaging Protocol: Axial computed tomography images with coronal and sagittal reformatted images were created and reviewed CONTRAST MATERIAL: Intravenous: Omnipaque-350 100cc Oral: None COMPARISON: CT ABD PELVIS WITH CONTRAST from 07/19/2009 CR,XR XR PORTABLE CHEST AP from 09/01/2021 CR,XR XR CHEST 1V IN DI DEPT from 09/16/2022 FINDINGS: VISUALIZED LUNG BASES: No nodules nor pleural effusions evident. ABDOMEN: There is no ascites. There is a large hiatal hernia which was not evident on the CT scan of 2009, this hiatal hernia measu ring 9 cm wide by 6 cm AP by 6 cm craniocaudal and this hiatal hernia contains abundant food material with minimal food material in the stomach distal to this below the diaphragm and the esophagus is di lated above this level. LIVER: There are no focal hepatic lesions evident. No dilated intrahepatic ducts. GALLBLADDER/BILIARY: No obvious gallbladder pathology. CBD is not dilated. PANCREAS: Pancreas is atrophic. No pancreatic masses. Pancreatic duct is not dilated. SPLEEN: Spleen is not enlarged. No obvious intrasplenic lesions. Splenic and portal veins are paten t. ADRENALS: There are no significant adrenal masses. KIDNEYS:Small benign cyst in the posterior cortex of the left kidney which measures 5 mm and does not require further imaging workup. No calculi nor hydronephrosis. No solid renal masses. Ureters are not dilated. No obvious abnormality in the urinary bladder. Bladder is somewhat distended.. ABDOMINAL AORTA: Abdominal aorta is not enlarged. LYMPH NODES:There is no retroperitoneal nor paraaortic adenopathy. ABDOMINAL WALL: No evidence of significant anterior abdominal wall nor inguinal hernia. GI: The stomach below the diaphragm is collapsed. Bowel loops are not dilated. PELVIS: GI: No evidence of appendicitis.Sigmoid diverticulosis but no evidence of acute diverticulitis. LYMPH NODES: There is no intrapelvic nor inguinal adenopathy. REPRODUCTIVE: Uterus is surgically absent. No abnormal adnexal masses. URINARY BLADDER: Distended. No masses nor calculi within the lumen. OSSEOUS: No fractures and no significant osseous lesions. IMPRESSION: 1. The main finding here is a large hiatal hernia measuring 9 x 6 x 6 cm and containing abundant food material and with dilatation of the esophagus above this level. The remainder of the stomach below the diaphragm is collapsed. 2. Uterus is surgically absent. There are no abnormal adnexal masses. 3. Sigmoid diverticulosis but no evidence of acute diverticulitis. 4. Urinary bladder is mildly distended. RADIATION DOSE DELIVERED: 1,431.66mGy.cm Total DLP DATA REPOSITORY: All CT scans at this facility are submitted to the National Radiology Data Registry (NRDR) Dose Index Registry (DIR) with the [employer] (ACR). RADIATION OPTIMIZATION: All CT scans at this facility use at least one of these dose optimization te chniques: automated exposure control; mA and/or kV adjustment per patient size (includes targeted exa ms where dose is matched to clinical indication); or iterative reconstruction.
[2022-09-15 23:23] LABS: Abs Immature Grans 0.06 10^3/uL (0.0-0.06); Absolute Basophil Count 0.06 10^3/uL (0.0-0.2); Absolute Eosinophil Count 0.12 10^3/uL (0.0-0.7); Absolute Lymphocyte Count 2.34 10^3/uL (1.2-3.4); Absolute Neutrophil Count 10.51 10^3/uL (1.2-6.7); Basophils % 0.4; Eosinophils % 0.9; HCT 42.9 % (36.0-46.0); HGB 13.8 g/dL (11.2-15.7); Immature Grans % 0.4; MCH 28.4 pg (27.0-33.0); MCHC 32.2 % (32.0-36.0); MCV 88 fL (80-95); Monocytes % 5.1; Neutrophils % 76.2; Platelet Count 337 10^3/uL (130-400); RBC 4.86 10^6/uL (3.93-5.22); RDW 13.7 % (11.7-14.6); RDW-SD 44.2 fL; WBC 13.79 10^3/uL (4.4-10.8)
[2022-09-15] MEDS: Ondansetron 4 MG/2 ML VIAL IVP (23:27)
[2022-09-15] MEDS: Normal Saline 500 ML 1000 ML IV (23:27)
--- NOTE | 2022-09-15 23:42 | W.ED.GENAD ---
Discharge Plan Discharge Details Chief Complaint: Chest Pain Primary Care Provider: Dinora Fan ED Provider: Darrel Latif Home Meds and New Rx's Prescriptions: No Action rabeprazole 20 mg tablet,delayed release (DR/EC) 20 mg PO BID Qty: 180 3RF Rx Instructions: take one tablet twice a day amlodipine 5 mg tablet 5 mg PO DAILY Qty: 90 3RF sumatriptan succinate 100 mg tablet See Rx Instructions PO .COMPLEX Qty: 20 4RF Rx Instructions: take 1 tab at onset of headache; if no relief, may repeat 1 tab after at least 2 hrs; max = 2 tabs/24 hrs PO levothyroxine 75 mcg capsule 75 mcg PO DAILY Qty: 30 0RF Rx Instructions: take one capsule daily ondansetron 4 mg tablet,disintegrating 4 mg PO Q6H PRN (Reason: nausea and vomiting) Qty: 10 0RF Medical Decision Making Patient with acute onset of nausea and vomiting about an hour after eating food. Suspect potential biliary issue. Also pancreatitis is a consideration. Could be gastritis could be gastroenteritis. Chest pain appears to be atypical and incidental but we will evaluate this as well. Do not suspect vascular catastrophe such as a dissection. Does not appear as a bowel obstruction as she only has proximal abdominal tenderness. Fact that the pain radiates to the mid back makes biliary disease or pancreatitis possibility. Patient denies heavy alcohol use. CT scan of the abdomen and pelvis pending. Differential Diagnosis Differential Diagnosis: Cholelithiasis/cholecystitis/pancreatitis/gastroenteritis/bowel obstruction Medical Records Medical records reviewed: Yes I reviewed the patient's medical records. Lab Data Lab results reviewed: Yes I reviewed the patient's lab results. ECG Data Attestation: I personally reviewed and interpreted this ECG (s) as follows: (No ST changes consistent with ischemia. No cardiac arrhythmia.) HPI General Date/Time Provider Initiated Documentation: 09/15/22 23:08. HPI Narrative: Patient was in her normal state of health when around 4 PM today after eating some dinner of roast beef and rice she about an hour later began to have intractable nausea and vomiting with an associated chest discomfort that radiated around to her back. Chest discomfort is epigastric. No previous episodes such as this. No known gallbladder disease. Patient denies any cardiac disease. States that she does not suffer from high cholesterol or hypertension. At this point her vomiting is just saliva but initially was food. Has been eating different meals. Patient does not complain of any abdominal pain at this time. No diarrhea. No fevers no chills. Related Data Home Medications Medication Instructions Recorded Confirmed rabeprazole 20 mg tablet,delayed 20 mg PO BID #180 tabs 08/29/21 09/15/22 release ondansetron 4 mg disintegrating 4 mg PO Q6H PRN nausea and 09/01/21 09/15/22 tablet vomiting #10 tabs amlodipine 5 mg tablet 5 mg PO DAILY #90 tabs 08/06/22 09/15/22 levothyroxine 75 mcg capsule 75 mcg PO DAILY #30 caps 08/06/22 09/15/22 sumatriptan succinate 100 mg tablet See Rx Instructions PO .COMPLEX 08/06/22 09/15/22 #20 tabs Previous Rx's Medication Instructions Recorded rabeprazole 20 mg tablet,delayed 20 mg PO BID #180 tabs 08/29/21 release ondansetron 4 mg disintegrating 4 mg PO Q6H PRN nausea and 09/01/21 tablet vomiting #10 tabs amlodipine 5 mg tablet 5 mg PO DAILY #90 tabs 08/06/22 levothyroxine 75 mcg capsule 75 mcg PO DAILY #30 caps 08/06/22 sumatriptan succinate 100 mg tablet See Rx Instructions PO .COMPLEX 08/06/22 #20 tabs Allergies Allergy/AdvReac Type Severity Reaction Status Date / Time Penicillins Allergy Severe THROAT Verified 11/16/21 09:50 SWELLS General Stated Complaint: Chest Pain LES: 3 Review of Systems Narrative: CONST: Negative for fever, body aches and chills. HENT: Negative for neck pain/stiffness, headache, congestion, sore throat, swelling. EYES: Negative for discharge/pain or vision changes. RESP: Negative for cough/hemoptysis and shortness of breath. CV: , difficulty breathing, palpitations. ABD: : Negative increase frequency, dysuria, blood in urine or stool. MUSC: Negative for muscle aches, edema. SKIN: Negative rash, lesions/sores. NEURO: Negative headache, dizziness, weakness. PFSH All Active Problems Tinnitus of left ear (Acute) Sensorineural hearing loss (SNHL) of both ears (Acute) Obesity, Class III, BMI 40-49.9 (morbid obesity) (Acute) Essential hypertension (Acute) Sliding hiatal hernia (Acute ~01/2018) [facility] Periodic limb movement disorder (Acute 08/12/15) Obstructive sleep apnea (Chronic 08/12/15) 2018 pt declines fup Hypothyroidism (Chronic) Depressive disorder (Chronic 07/17/07) Migraine headache (Chronic) GERD (gastroesophageal reflux disease) (Chronic) Medical History Low back pain radiating to both legs (12/09/14) mri : left neural foraminal narrowing L5S1/apparent syrinx of lower thoracic cord- no resp. PT/ :no spinal stenosi/not sx Neck fullness (11/25/13) right scalene fat pad/ eval. [facility] Surgical History History of tooth extraction History of total hysterectomy with removal of both tubes and ovaries Hx of esophagogastroduodenoscopy S/P cataract extraction S/P rotator cuff repair S/P shoulder surgery Family History Mother , age 72 Essential hypertension Breast cancer Sister , age 53 Breast cancer Lung cancer Sister , age 74 Liver cancer Lung cancer Father , age 72 Lung cancer Brother Diabetes Essential hypertension Heart disease Maternal Grandfather , age 72 Lung cancer Pancreatic cancer Paternal Grandfather , age 42 Heart disease Maternal Grandmother , age 81 Diabetes Essential hypertension Stroke Breast cancer Paternal Grandmother No problems noted. Son No problems noted. Daughter No problems noted. Daughter No problems noted. 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 [employer] Pets and animals: No Sexually active: No Do you think of yourself as: straight/heterosexual Current gender identity: female What is your relationship status?: How often do you talk on the phone with friends or family?: three or more times per week How often do you get together with friends or relatives?: once per week How often do you attend nondenominational or rastafarian services?: decline to answer Do you belong to any clubs or organized social groups?: yes Panel score (0-1 are the most socially isolated patients): 3 What type of physical activity do you participate in: none Frequency: does not exercise Irene/Caodaism: Congregational Special irene needs: No Seatbelt use: always Helmet use: No Drive intox or ride w/intox driver starting gate: No Do you feel safe at home: Yes Do you feel safe in your relationship?: Yes Additional Social history: Enjoys cake decorating, baking. Exam Narrative Exam Narrative: GENERAL APPEARANCE NAD, activity normal for age, well developed/ well nourished, no cyanosis, pallor, or diaphoresis. EYES lids/conjunctiva normal. EARS/NOSE/THROAT Mucous membranes moist, nares normal, lips/teeth normal uvula midline without oral pharyngeal erythema, exudate or swelling No lymphangitis/lymphedema. HEAD/NECK normocephalic atraumatic, no facial trauma, neck is supple. RESPIRATORY respiratory effort normal, speaks in full sentences, no tripod position, no accessory muscle use. Lungs clear to auscultation without rhonchi, wheezes, rales CARDIAC Regular rate and rhythm, no edema. ABDOMINAL Soft, ND/NT. No evidence of fluid wave. No pulsatile masses on exam, rebound tenderness, Webster sign or pain over Mcburney's point. MUSCLES/EXTREMITIES No abnormal range of motion, no swelling. SKIN Warm, pink and dry. No rashes, dermatoses, petechiae or lesions. NEUROLOGICAL Speech is clear and appropriate. Normal level of consciousness. Gait and coordination are normal. 5/5 strength in all extremities. PSYCH Normal mood and affect. Judgement/competence is appropriate Course Reevaluation(s) Time: 03:27 Reevaluation: Distal food impaction in the site of the hiatus hernia. Discussed the case with on-call general surgery who will see the patient in preparation for endoscopy. Will administer dose of 4 mg morphine for comfort. Second opponent is negative because of the pain is obviously the food impaction. I have informed the patient and her Vital Signs Vital signs: Vital Signs Temperature 36.4 C L 09/15/22 22:55 Pulse 117 H 09/15/22 22:55 Respiratory Rate 19 09/15/22 22:55 Blood Pressure 191/112 H 09/15/22 22:55 Pulse Oximetry 97 09/15/22 22:55 Temperature 36.4 C L 09/15/22 22:55 Temperature Source Temporal Artery Scan 09/15/22 22:55 Pulse 117 H 09/15/22 22:55 Respiratory Rate 19 09/15/22 22:55 Respiratory Effort Normal 09/15/22 22:59 Blood Pressure 191/112 H 09/15/22 22:55 Blood Pressure Position Sitting 09/15/22 22:55 Pulse Oximetry 97 09/15/22 22:55 Oxygen Delivery Method Room Air 09/15/22 22:55 Oxygen Flow Rate 0 09/15/22 22:55 Pain Level 9 09/15/22 22:55 Lab/Test Results Lab/Test Results: Laboratory Tests Range/Units 09/15/22 23:15 WBC (4.4-10.8) 10^3/uL 13.79 H RBC (3.93-5.22) 10^6/uL 4.86 Hgb (11.2-15.7) g/dL 13.8 Hct (36.0-46.0) % 42.9 MCV (80-95) fL 88 MCH (27.0-33.0) pg 28.4 MCHC (32.0-36.0) % 32.2 RDW (11.7-14.6) % 13.7 Plt Count (130-400) 10^3/uL 337 MPV (8.0-11.0) fL 9.0 Immature Gran % 0.4 Neutrophils % 76.2 Lymphocytes % 17.0 Monocytes % 5.1 Eosinophils % 0.9 Basophils % 0.4 Nucleated RBC % (0.0-0.3) % 0.0 Absolute Neutrophils (1.2-6.7) 10^3/uL 10.51 H Absolute Lymphocytes (1.2-3.4) 10^3/uL 2.34 Absolute Monocytes (0.1-0.8) 10^3/uL 0.70 Absolute Eosinophils (0.0-0.7) 10^3/uL 0.12 Absolute Basophils (0.0-0.2) 10^3/uL 0.06
[2022-09-15 23:44] LABS: ALT 20 U/L (14-59); AST 18 U/L (15-37); Alkaline Phosphatase 92 U/L (46-116); Anion Gap 11.6 mmol/L (3-11); BUN 11 mg/dL (7-18); Bilirubin, Total 0.4 mg/dL (0.2-1.0); CO2 26.4 mmol/L (21.0-32.0); CREATININE 1.2 mg/dL (0.55-1.02); Calcium 8.7 mg/dL (8.5-10.1); Chloride 105 mmol/L (98-107); Estimated GFR 46.05 (mL/min/1.73m2); Glucose 144 mg/dL (74-106); Lipase 17 U/L (16-77); NT-proBNP 175 pg/mL (<300); Potassium 3.9 mmol/L (3.5-5.1); Sodium 143 mmol/L (136-145); Total Protein 7.8 g/dL (6.4-8.2); Troponin I < 50 ng/L (<or=60)
[2022-09-16] VITALS (58 sets, daily range): BP systolic 149–175; BP diastolic 48–100; PULSE 72–119; RESP 4–24; TEMP 36.3–36.9; O2SAT 84–100; BMI 40.4
[2022-09-16] MEDS: Omnipaque 350 MG/ML 100 ML BTL IJ (00:21)
[2022-09-16] MEDS: Normal Saline - Diluent 50 ML VIAL IV (00:22)
--- NOTE | 2022-09-16 01:07 | DI.VRAD_ITS ---
PROCEDURE INFORMATION: Exam: XR Chest Exam date and time: 09/16/2022 12:07 AM Age: 77 years old Clinical indication: Pain; Chest pressure TECHNIQUE: Imaging protocol: Radiologic exam of the chest. Views: 1 view. COMPARISON: CR XR PORTABLE CHEST AP 09/01/2021 8:36 PM FINDINGS: Lungs: Clear lungs. Pleural spaces: No pleural effusion. Heart/Mediastinum: Mild cardiomegaly. Stable since 09/01/2021. Moderate size hiatal hernia. Bones/joints: Previous bilateral shoulder rotator cuff reattachment surgery. IMPRESSION: 1. Mild cardiomegaly stable since prior exam. 2. Moderate hiatal hernia. 3. Clear lungs and pleural space. Dictated and Authenticated by: Krunal Cespedes MD. Ordering:PAKO Rojo MD
--- NOTE | 2022-09-16 01:14 | DI.VRAD_ITS ---
PROCEDURE INFORMATION: Exam: CT Abdomen And Pelvis With Contrast Exam date and time: 09/16/2022 12:15 AM Age: 77 years old Clinical indication: Nausea and vomiting TECHNIQUE: Imaging protocol: Computed tomography of the abdomen and pelvis with contrast. Contrast material: OMNIPAQUE 350; Contrast volume: 100 ml; Contrast route: INTRAVENOUS (IV); COMPARISON: HI HEPATOBILIARY SCAN 01/14/2018 9:07 AM FINDINGS: Lungs: Lung bases are clear. Pleural spaces: No pleural effusion. Heart: Normal heart size. No pericardial effusion. Coronary arteries: No coronary artery atherosclerotic calcium evident. Diaphragm: Liver: Diffuse mild fatty liver infiltration. Gallbladder and bile ducts: The gallbladder is normal in size and shape. No stones or inflammatory changes. Pancreas: Severe pancreatic atrophy. No acute change. Spleen: The spleen is normal in size, contour and attenuation. Adrenal glands: The adrenal glands are normal in size and contour bilaterally. Kidneys and ureters: The kidneys bilaterally are unremarkable. Normal attenutation. No hydronephrosis. No calculi. Stomach and bowel: Moderate size hiatal hernia with retention of food material within the hernia. The esophagus above the level of this hernia has fluid retention. The subdiaphragmatic portion of the stomach has minor fluid, but is essentially collapsed. This suggests that there is an impaction of ingested food material within the hiatal hernia. No evidence of stricture or mass at the diaphragmatic hiatus region. Small bowel loops are unremarkable in course and caliber. Large bowel with diverticulosis. No acute diverticulitis. Appendix: No evidence of appendicitis. Intraperitoneal space: No free fluid in the abdomen or pelvis. No free air. Vasculature: Unremarkable. No abdominal aortic aneurysm. Lymph nodes: Unremarkable. No enlarged lymph nodes. Urinary bladder: Urinary bladder is unremarkable in appearance. No wall thickening. No intravesicular calculi. No intravesicular gas. Reproductive: Unremarkable as visualized. Previous hysterectomy. Bones/joints: Degenerative lumbar spine disease. Soft tissues: Unremarkable. IMPRESSION: 1. Moderate size hiatal hernia with retained food material. The subdiaphragmatic portion of the stomach is essentially collapsed. There is some fluid retention in the esophagus above the hernia. This could represent impacted food material in the distal esophagus. 2. Severe pancreatic atrophy. 3. Fatty liver infiltration. 4. Colonic diverticulosis without diverticulitis. Dictated and Authenticated by: Krunal Cespedes MD. Ordering:PAKO Rojo MD
[2022-09-16 02:22] LABS: Troponin I < 50 ng/L (<or=60)
[2022-09-16] MEDS: MORPHine 4 MG/ML SYR IVP (03:28)
--- NOTE | 2022-09-16 08:33 | W.EDPROG ---
Date of service: 09/16/22 Time of Service: 08:33 Medical Decision Making I received signout on this 77-year-old female pending endoscopy with general surgery in the setting of an esophageal food bolus impaction. General surgery is aware of the patient. 09/17 Patient to OR from ED. Disposition per surgery. Sign Out Sign Out Data: Sign Out Comment: Pending disposition to the OR for endoscopy for a food impaction and a hiatus hernia. Last updated by Darrel Latif MD at 09/16/22 07:35 Discharge Plan Disposition Condition: Fair Discharge Details Chief Complaint: Chest Pain Attending Provider: Charlene Cantor Primary Care Provider: Dinora Fan ED Provider: Gonzalez Chong Discharge Instructions Activity:: no strenuous activity for 72 hrs Diet:: see above Discharge Orders Discharge Orders: Discharge Order (Routine); Ordered 09/16/22 Ordered By: Charlene Cantor Discharge Data Discharge Date/Time-TO BE ENTERED AT DEPARTURE: 09/16/22 09:14
--- NOTE | 2022-09-16 08:54 | W.PM.HP.N ---
Date of service: 09/16/22 Time of Service: 08:54 Assessment and Plan Assessment and plan (1) Esophageal foreign body: Status: Acute Assessment and plan: Informed consent is obtained for the procedural (explained in simple layman's terms that the pt. and/or family could understand) explaining risks vs benefits and alternatives to the procedure and consequences if we do not do the procedure and need/rational for the procedure. Risks include but are not limited to: bleeding, infection, perforation of esophagus, stomach. This would necessitate emergency surgery to repair the damage w/ possible ostomy; and other associated complications w/ the required surgery. Also complications of anesthesia including aspiration, SC/CVA/. -Patient will probably have a sore throat for 3 to 4 days after the procedure. She should gargle with salt water. She will probably need to be on a clear liquid diet for 24 hours after the procedure We will plan on doing as a general in the OR. (2) Tinnitus of left ear: Status: Acute (3) Sensorineural hearing loss (SNHL) of both ears: Status: Acute (4) Obesity, Class III, BMI 40-49.9 (morbid obesity): Status: Acute (5) Essential hypertension: Status: Acute (6) Sliding hiatal hernia: Status: Acute (7) Periodic limb movement disorder: Status: Acute (8) Obstructive sleep apnea: Status: Chronic (9) Hypothyroidism: Status: Chronic (10) Depressive disorder: Status: Chronic (11) Migraine headache: Status: Chronic (12) GERD (gastroesophageal reflux disease): Status: Chronic History of Present Illness Narrative: Patient has a known history of a large hiatal hernia. She presented to the ER last night with nausea vomiting unable to control her own secretions. She is never had an esophageal foreign body before. She does have a history of reflux. She is seeing down at [facility] for this. CT was performed last night which showed a large amount of impacted food in the hiatal hernia. She has been vomiting all night. She complains of pain and sore throat today. She says she cannot swallow. She gives a mixed history of whether or not she can swallow her own secretions or still spitting them out. She says she cannot swallow them down but she is holding bag and spitting. She has had multiple EGDs at [facility] and sounds like she has had pH probe testing in the past. She is denies having a heart attack or stroke cardiac stents or bowel work. She is not diabetic. She has a history of hypertension and hypothyroidism. She has had multiple surgeries including a hysterectomy and multiple endoscopies. She denies complications with anesthesia. She does have ARTHUR. She is not a smoker Review of Systems Narrative: She denies any prior esophageal foreign body. She has a known history of a hiatal hernia. She is on a PPI. She denies any prior head neck surgery head neck trauma or head neck radiation. All systems reviewed & are unremarkable except as noted in HPI and below PFSH All Active Problems (Updated 09/16/22 @ 08:59 by Charlene Cantor DO) Esophageal foreign body (Acute) Tinnitus of left ear (Acute) Sensorineural hearing loss (SNHL) of both ears (Acute) Obesity, Class III, BMI 40-49.9 (morbid obesity) (Acute) Essential hypertension (Acute) Sliding hiatal hernia (Acute ~01/2018) [facility] [place] Periodic limb movement disorder (Acute 08/12/15) Obstructive sleep apnea (Chronic 08/12/15) 2018 pt declines fup Hypothyroidism (Chronic) Depressive disorder (Chronic 07/17/07) Migraine headache (Chronic) GERD (gastroesophageal reflux disease) (Chronic) Medical History Low back pain radiating to both legs (12/09/14) mri : left neural foraminal narrowing L5S1/apparent syrinx of lower thoracic cord- no resp. PT/ :no spinal stenosi/not sx Neck fullness (11/25/13) right scalene fat pad/ eval. [facility] [place] Surgical History History of tooth extraction History of total hysterectomy with removal of both tubes and ovaries Hx of esophagogastroduodenoscopy S/P cataract extraction S/P rotator cuff repair S/P shoulder surgery Family History Mother , age 72 Essential hypertension Breast cancer Sister , age 53 Breast cancer Lung cancer Sister , age 74 Liver cancer Lung cancer Father , age 72 Lung cancer Brother Diabetes Essential hypertension Heart disease Maternal Grandfather , age 72 Lung cancer Pancreatic cancer Paternal Grandfather , age 42 Heart disease Maternal Grandmother , age 81 Diabetes Essential hypertension Stroke Breast cancer Paternal Grandmother No problems noted. Son No problems noted. Daughter No problems noted. Daughter No problems noted. 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 [employer] Pets and animals: No Sexually active: No Do you think of yourself as: straight/heterosexual Current gender identity: female What is your relationship status?: How often do you talk on the phone with friends or family?: three or more times per week How often do you get together with friends or relatives?: once per week How often do you attend confucianism or mandaen services?: decline to answer Do you belong to any clubs or organized social groups?: yes Panel score (0-1 are the most socially isolated patients): 3 What type of physical activity do you participate in: none Frequency: does not exercise Irene/Taoist: Yarsanism Special irene needs: No Seatbelt use: always Helmet use: No Drive intox or ride w/intox line haul driver: No Do you feel safe at home: Yes Do you feel safe in your relationship?: Yes Additional Social history: Enjoys cake decorating, baking. Meds Allergies and Home Medications Allergies Allergy/AdvReac Type Severity Reaction Status Date / Time Penicillins Allergy Severe THROAT Verified 11/16/21 09:50 SWELLS Home Medications Medication Instructions Recorded Confirmed Type rabeprazole 20 mg tablet,delayed 20 mg PO BID #180 tabs 08/29/21 09/15/22 Rx release ondansetron 4 mg disintegrating 4 mg PO Q6H PRN nausea and 09/01/21 09/15/22 Rx tablet vomiting #10 tabs amlodipine 5 mg tablet 5 mg PO DAILY #90 tabs 08/06/22 09/15/22 Rx levothyroxine 75 mcg capsule 75 mcg PO DAILY #30 caps 08/06/22 09/15/22 Rx sumatriptan succinate 100 mg tablet See Rx Instructions PO .COMPLEX 08/06/22 09/15/22 Rx #20 tabs Exam Const Other: PHYSICAL EXAM GENERAL APPEARANCE: Alert, healthy appearance, oriented, x 3,? in no acute distress HYDRATION: Well hydrated HEAD, EYES, EARS, NECK, THROAT: Head is normocephalic, pupils equal, round, reactive to light and accommodation, ocular movement intact, sclera clear and no jaundice. ?Dentition intact. + sore throat.? NECK: ? Trachea midline.? Neck supple.? LUNGS: normal respiration/normal chest excursion. ?Clear to auscultation bilaterally. ?No wheeze. ?HEART: Regular rate and rhythm. no murmurs mechanical chest pain and pain when she swallows ABDOMEN: soft and non-tender to palpation.? Normal bowel sounds.? Results Labs 09/15/22 23:15 09/15/22 23:15 Labs: Laboratory Results - last 24 hr 09/15/22 09/15/22 09/16/22 23:15 23:15 02:00 WBC 13.79 H RBC 4.86 Hgb 13.8 Hct 42.9 MCV 88 MCH 28.4 MCHC 32.2 RDW 13.7 Plt Count 337 MPV 9.0 Immature Gran % 0.4 Neutrophils % 76.2 Lymphocytes % 17.0 Monocytes % 5.1 Eosinophils % 0.9 Basophils % 0.4 Nucleated RBC % 0.0 Absolute Neutrophils 10.51 H Absolute Lymphocytes 2.34 Absolute Monocytes 0.70 Absolute Eosinophils 0.12 Absolute Basophils 0.06 Sodium 143 Potassium 3.9 Chloride 105 Carbon Dioxide 26.4 Anion Gap 11.6 H BUN 11 Creatinine 1.2 H Est GFR (CKD-EPI 2020) 46.05 Glucose 144 H Calcium 8.7 Total Bilirubin 0.4 AST 18 ALT 20 Alkaline Phosphatase 92 Troponin I < 50 < 50 NT-Pro-B Natriuret Pep 175 Total Protein 7.8 Albumin 4.0 Lipase 17 Last Vital Signs Temp 36.4 C L 09/15/22 22:55 Pulse 74 09/16/22 08:01 Resp 16 09/16/22 08:01 BP 167/58 H 09/16/22 08:01 Pulse Ox 97 09/16/22 08:01 Time Spent Time spent with Patient: <40 minutes Time was spent: preparing to see the patient(eg.review tests), obtaining and/or reviewing separately otained hiistory, ordering medications,tests, procedures, referring, communicating with other health health care attorney, indepentently interpreting results, counseling the patient and care coordination
--- NOTE | 2022-09-16 08:58 | W.ANESPRE ---
General Info Date of Service Date Performed: 09/16/22 Height: 5 ft Weight: 93.894 kg Body Mass Index (BMI): 40.4 Surgical Procedure: Operation Date: 09/16/22 09:15 Proposed Procedure Side Surgeon p Gastroscopy/Removal Foreign Body Charlene Cantor DO Meds Allergies and Home Medications Allergies Allergy/AdvReac Type Severity Reaction Status Date / Time Penicillins Allergy Severe THROAT Verified 11/16/21 09:50 SWELLS Home Medication Medication Instructions Recorded rabeprazole 20 mg tablet,delayed 20 mg PO BID #180 tabs 08/29/21 release ondansetron 4 mg disintegrating 4 mg PO Q6H PRN nausea and 09/01/21 tablet vomiting #10 tabs amlodipine 5 mg tablet 5 mg PO DAILY #90 tabs 08/06/22 levothyroxine 75 mcg capsule 75 mcg PO DAILY #30 caps 08/06/22 sumatriptan succinate 100 mg tablet See Rx Instructions PO .COMPLEX 08/06/22 #20 tabs Current Visit Medications: Current Medications Generic Name Dose Route Start Last Admin Trade Name Jessica PRN Reason Stop Dose Admin Iohexol 100 ml 09/16/22 00:30 09/16/22 00:21 Omnipaque 350 Mg/Ml 100 Ml Btl IJ 10/16/22 23:59 100 ml DIRECTED DANITA Administration Morphine Sulfate 2 mg 09/16/22 03:24 Morphine 10 Mg/Ml Vial IVP DIRECTED PRN Sodium Chloride 50 ml 09/16/22 00:30 09/16/22 00:22 Normal Saline - Diluent 50 Ml Vial IV 50 ml .FOR DI USE DANITA Administration PFSH Active Problems Active Problems: Problem Status Onset Code Tinnitus of left ear H93.12 Sensorineural hearing loss (SNHL) of both ears H90.3 Obesity, Class III, BMI 40-49.9 (morbid obesity) E66.01 Essential hypertension I10 Sliding hiatal hernia ~01/2018 K44.9 Periodic limb movement disorder 08/12/15 G47.61 Obstructive sleep apnea 08/12/15 G47.33 Hypothyroidism E03.9 Depressive disorder 07/17/07 F32.9 Migraine headache G43.909 GERD (gastroesophageal reflux disease) K21.9 Medical History Medical History Low back pain radiating to both legs (12/09/14) mri : left neural foraminal narrowing L5S1/apparent syrinx of lower thoracic cord- no resp. PT/ :no spinal stenosi/not sx Neck fullness (11/25/13) right scalene fat pad/ eval. [facility] [place] Surgical History Surgical History History of tooth extraction History of total hysterectomy with removal of both tubes and ovaries Hx of esophagogastroduodenoscopy S/P cataract extraction S/P rotator cuff repair S/P shoulder surgery Tobacco Smoking/Tobacco Use Status: Never Passive smoking exposure: Yes Second hand exposure: Yes Alcohol Alcohol Intake: never Substance Use Substance use: Never Substance use type: does not use Vital Signs and Lab Results Vital Signs Most Recent Vital Signs in EMR: Most Recent Vital Signs Temp Pulse Resp BP Pulse Ox 36.4 C L 74 16 167/58 H 97 09/15/22 22:55 09/16/22 08:01 09/16/22 08:01 09/16/22 08:01 09/16/22 08:01 Lab Results 09/15/22 23:15 09/15/22 23:15 Blood Type / Crossmatch: No Data to Display Complete Blood Count: White Blood Count 13.79 10^3/uL (4.4-10.8) H 09/15/22 23:15 Red Blood Count 4.86 10^6/uL (3.93-5.22) 09/15/22 23:15 Hemoglobin 13.8 g/dL (11.2-15.7) 09/15/22 23:15 Hematocrit 42.9 % (36.0-46.0) 09/15/22 23:15 Platelet Count 337 10^3/uL (130-400) 09/15/22 23:15 Complete Metabolic Panel: Sodium 143 mmol/L (136-145) 09/15/22 23:15 Potassium 3.9 mmol/L (3.5-5.1) 09/15/22 23:15 Chloride 105 mmol/L (98-107) 09/15/22 23:15 Carbon Dioxide 26.4 mmol/L (21.0-32.0) 09/15/22 23:15 BUN 11 mg/dL (7-18) 09/15/22 23:15 Creatinine 1.2 mg/dL (0.55-1.02) H 09/15/22 23:15 Est GFR (CKD-EPI 2020) 46.05 (mL/min/1.73m2) 09/15/22 23:15 Calcium 8.7 mg/dL (8.5-10.1) 09/15/22 23:15 Albumin 4.0 g/dL (3.4-5.0) 09/15/22 23:15 Glucose 144 mg/dL (74-106) H 09/15/22 23:15 Liver Function Panel: Alanine Aminotransferase (ALT/SGPT) 20 U/L (14-59) 09/15/22 23:15 Aspartate Amino Transf (AST/SGOT) 18 U/L (15-37) 09/15/22 23:15 Coagulation Panel: No Data to Display Cardiac Panel: Troponin I < 50 ng/L (<or=60) 09/16/22 NT-Pro-B Natriuret Pep 175 pg/mL (<300) 09/15/22 Arterial Blood Gas: No Data to Display Venous Blood Gas: No Data to Display Pancreas Panel: Lipase 17 U/L (16-77) 09/15/22 23:15 Thyroid Panel: No Data to Display Infectious Disease: No Data to Display Blood Cultures: No Data to Display Toxicology Panel: No Data to Display Anesthesia Assessment and Plan Anesthesia History Personal History: No History of Anesthesia Complications Family History: No Family History of Anesthesia Complications Exercise Tolerance Exercise Tolerance: Metabolic Equivalents<4 Cardiac & Pulmonary Exam Cardiac Exam: Normal S1/S2 Heart Sounds Pulmonary Exam: Clear Bilateral Breath Sounds Implantable Cardiac Device Does patient have a Pacemaker or an ICD?: No Airway Exam Known Difficult Airway: No Mallampati Class: 3 Mouth Opening: Narrow (< 3cm) Thyromental Distance: Greater than 3 cm Neck Range of Motion: Full ROM Neck Circumference: Normal Teeth Condition: Normal Dentition ASA Classification ASA Score: ASA 2 Emergency Case?: Yes NPO Status NPO Status: Full Stomach Anesthesia Plan Resuscitation Status: Full Code Anesthesia Technique: General Anesthesia Airway Planned: Endotracheal Tube Monitors Used: Standard Monitors
[2022-09-16] MEDS: Lactated Ringers 1,000 ML 80 ML IV (09:30)
--- NOTE | 2022-09-16 10:37 | DSE_ITS ---
Date of service: 09/16/22 Time of Service: 10:37 DS: Diagnosis Discharge Diagnosis (1) Esophageal foreign body: Status: Acute (2) Tinnitus of left ear: Status: Acute (3) Sensorineural hearing loss (SNHL) of both ears: Status: Acute (4) Obesity, Class III, BMI 40-49.9 (morbid obesity): Status: Acute (5) Essential hypertension: Status: Acute (6) Sliding hiatal hernia: Status: Acute (7) Periodic limb movement disorder: Status: Acute (8) Obstructive sleep apnea: Status: Chronic (9) Hypothyroidism: Status: Chronic (10) Depressive disorder: Status: Chronic (11) Migraine headache: Status: Chronic (12) GERD (gastroesophageal reflux disease): Status: Chronic Discharge Plan Disposition Patient Disposition: Home Condition: Fair Discharge Details Reason For Visit: Endoscopy Attending Provider: Charlene Cantor Primary Care Provider: Dinora Fan Home Meds and New Rx's Prescriptions: No Action rabeprazole 20 mg tablet,delayed release (DR/EC) 20 mg PO BID Qty: 180 3RF Rx Instructions: take one tablet twice a day amlodipine 5 mg tablet 5 mg PO DAILY Qty: 90 3RF sumatriptan succinate 100 mg tablet See Rx Instructions PO .COMPLEX Qty: 20 4RF Rx Instructions: take 1 tab at onset of headache; if no relief, may repeat 1 tab after at least 2 hrs; max = 2 tabs/24 hrs PO levothyroxine 75 mcg capsule 75 mcg PO DAILY Qty: 30 0RF Rx Instructions: take one capsule daily ondansetron 4 mg tablet,disintegrating 4 mg PO Q6H PRN (Reason: nausea and vomiting) Qty: 10 0RF Discharge Instructions Additional Instructions: -liquid diet for the next 48 hrs. ok to take pills -you WILL have a sore throat for the next 3-5 days. Gargle w/ salt water 4-5 times a day -resume a soft diet for 1 week (after 48 hrs). Take a bite. Chew thoroughly. Take a sip of water after each bite to make sure food goes down. Do not drink alcohol or caffeine with meals. -Continue with lifestyle modifications: no alcohol, tobacco products, Aspirin or NSAID's (ibuprofen, Motrin, Naprosyn, aleve, etc), soda pop/any carbonated beverages, caffeine (including tea & chocolate), and acidic foods, (tomatoes, citrus, onions, peppermints) spicy or fried/fatty foods. Do not lie down for 30 minutes after eating, and do not eat 2 hours prior to bedtime. Avoid wearing tight fitting clothing/ belts -F/u w/ primary doctor in 1 weeks time Living With a Hiatal Hernia Lifestyle plays just as important a role as medication Top of Form Bottom of Form When to See a Doctor About Hiatal Hernia https://www.[place]/hzpnivxq-px-x-siatuo-[email or web address] Many people diagnosed with a?hiatal hernia https://www.[employer]/qbuhya-scocmj-hkhsze-zus-qoev-yitxosm-8050934 ?will not have any symptoms.1? For those who do, heartburn and indigestion will be the most common ones experienced. While medications may provide some relief, effective coping strategies are rooted in mitigating discomfort in the first place. If you have a hiatal hernia, some basic approaches?from diet changes to weight loss to hydration?can go a long way in helping you manage your condition and overcome the occasional flare-up. Illustration by Luann Perez [employer] It will come as no surprise to those with chronic heartburn that certain foods can pretty much guarantee a flare-up. Many of these food triggers are common to all sufferers. Other problems, meanwhile, are related to the amount of food we eat. What You Eat This dynamic is, perhaps, best illustrated by a?2013 study https://dx.d oi.org/10.5114/pg.2013.88229 ?from the [employer] in [place] which evaluated the association between acid reflux and common food triggers in 513 adults with?gastroesophageal reflux disease?(GERD) https://www.[place]/jsjbcpwa-lx-onrl-9758384 . What they found was that there was as much as a two- to three-fold increase in the?risk of symptoms https://www.[place]/rythcmcb-lh-r-snvsyx-brmhdq-1029636 ?when people ate the following types of foods: * Fatty foods * Sugary foods * Spicy foods * Fried foods * Peppermint tea * Fruit juices * Sour foods * Fresh fruit * Alcohol While the study didn't take into the account certain?common food triggers https://www.[place].[employer]ekni-iirgvj-yfnx-5419377 ,?like citrus or caffeine, the figures more or less reflect the experience of the typical person with GERD. To this end, there are certain foods you need to avoid if you have active symptoms or are prone to recurrence. They include red meat, processed foods, mayonnaise, butter, margarine, tomato-based sauces, chocolate, coffee, caffeinated tea, carbonated drinks, citrus and citrus juices, and whole-fat dairy products. In their place, foods like lean chicken, fish, vegetables, grains, and low-fat dairy can provide you the proteins, fats, and carbohydrates you need without triggering the overproduction of stomach acid. Alcohol https://www.[place].[employer]egbmdb-btefdh-vq-heartburn-4667797 ?should also be avoided and not so much because it triggers acid production. Rather, alcohol has a corrosive effect on the esophagus and greatly amplifies the symptoms of reflux, in some cases tripling the risk of severe heartburn and chest pain.2? Similar results have been seen in people who?overuse salt https://www.[place].[employer]edhd-qzpvgj-elpk-0415814 . How You Eat? When it comes to?acid reflux https://www.[employer]qlbqfp-vxfkxs-lb-heartburn-3543646 ,?how?you?eat plays almost as important a role in the appearance of symptoms as?what?you?eat. This is especially true if the source of the problem is a?hiatal hernia https://www.[place].[employer]eunixv-blckgk-2661779 . With a hiatal hernia, the protrusion of the stomach into the chest cavity can alter the alignment of the LES, the valve that protects your esophagus from the contents of your stomach.?As a result, food and acid can leak through this oth erwise protective gateway?often profusely. To remedy this, you need to mindful of the position of your stomach as you eat. You also need to ensure that you don't overtax the stomach and that food is able to move through the digestive tract without complication. To achieve this: * Always sit up straight in a chair while eating.3? This ensures that your stomach is in the best alignment to receive food. By contrast, slouching (say,?on the sofa) not only places your stomach in a more horizontal position, it compresses the junction between the stomach and esophagus, promoting backflow.? * Eat smaller, more frequent meals.3??And, more importantly perhaps, do not skip meals. Doing so will only lead you to overeat. * Always eat at a table.?The thing about nibbling on the run or munching in front the TV is that you can end up?mindlessly putting food into your mouth?without even realizing it. Sitting a table with prepared portions helps avoid this. * Take smaller bites and chew longer.3??The rationale is simple: The more your food is pulverized before swallowing, the less the stomach has to do to digest it. This translates to less stomach acid and less acid reflux. * Sit upright for at least an hour after eating.?It is best to do so in a solid but comfortable chair. Also, avoid bending or lying down immediately after eating. * Avoid eating three hours before bedtime.3??This includes snacks. Sleeping with an emptied stomach means there will be far less chance of mjvffy-bm-kbl-night reflux. Weight Loss As an independent risk factor, obesity increases the risk of heartburn in people with hiatal hernias exerting excessive pressure on the abdominal wall. This, in turn, compresses the stomach against the diaphragm, not only altering its position but causing it bulge even further into the chest cavity. If you are either overweight or obese, you need to include weight loss an integral part of your treatment plan. The program should ideally be overseen by a doctor or vocational adviser experienced in?metabolic syndrome https://www.[employer].com/aycxixwac-orfvxval-7998623 . Among the facets of the plan: * Reducing your body mass index (BMI)?from above 30 (obese) to below 25 (normal) can half your risk of acid reflux.4? * A low-fat, high-fiber diet?is dickson to both weight loss and the normalization of your digestive function. The low-fat diet shouldn't necessarily be low-carb, but rather contain complex carbohydrates that have less impact your blood sugar. A diet high in soluble fiber?can help treat constipation and alleviate the straining that can promote herniation. * Drinking at least eight glasses of water per day?can further relieve constipation while diluting the concentrations of acid in your stomach. If you are overweight or obese, water?intake should be even greater. A simple rule of thumb is to drink half your body weight in ounces of water. For example, if you weight 200 pounds, you should drink no less than 100 ounces of water per day (or roughly three-quarters of a gallon). * Take a reasoned approach to exercise.?An informed fitness program should always start easily (with maybe 10 to 15 minutes of exercise performed thrice weekly) and gradually increase in both intensity and duration. The aim of the program is to create a lifetime habit and avoid burnout. To this end, consider working with a lion trainer to get started and/or to adjust your program as you build endurance and strength. Everyday Living When it comes to hiatal hernia symptoms, self-care can go a long way in reducing them?and?preventing them from returning. Work to turn these suggestions into habits: * Relax.?While stress doesn't necessarily cause acid reflux, an increasing? body of evidence https://dx.doi.org/10.1007/j07609-276-9510-q ?has shown that stress can impact the way in which our body reacts to reflux symptoms. So, rather than?tying yourself in a knot, trying sitting calming and engaging in deep breathing exercises or meditation. Find someplace quiet where you can sit comfortably until the symptoms pass. * Loosen your belt and remove tight clothing.?Ultimately, anything that constricts the abdomen can trigger symptoms as you move about and jostle the contents of your stomach. Give yourself a break and avoid cinched waistlines or anything that places direct stress on the stomach. * Take a fiber supplement.?If you are suffering from chronic constipation, a daily?fiber supplement https://www.[place].[employer]ykudfofejhap-paaemssf-12874 ?can help improve your regularity.5? A couple of tablespoons of mineral oil can also help ease hardened stools during acute bouts. * Elevate the head of your bed 4 to 8 inches. This is especially useful for people who are overweight or have the?symptoms of GERD https://www.[place].[employer])/tmpvhari-bn-jzuf-4316632 . Aligning the stomach in an ascending (rather than flat) position significantly lowers the risk of gastric backflow related to hiatal hernias. * Avoid heavy lifting.?If you have been diagnosed with a large hernia, lifting heavy objects will only make things?worse. If you have to move something heavy, use a cart or trolley, or, better yet, ask someone else to do it. You may also need to alter your workout routine if you use heavy weights or engage in exercises that place excessive stress on the stomach muscles (including weighted squats or crunches). Finally,?stop smoking.6??While smoking doesn't cause acid reflux, it can affect? gastric motility https://www.[place]/enmh-kr-ckjqgylqeeq-5527935 ?and the way in which food moves through the esophagus. Smoking can also dull the responsiveness your LES and promote?dysphagia https://www.[place]/i-srvu-bsotk-lx-stidhz-vhlgra-the-process- lx-sgwfwgymd-1642937 ?(swallowing difficult). These effects are long-lasting and may become permanent in heavy smokers, turning even a small hernia into a source of ongoing grief. Activity:: no strenuous activity for 72 hrs Diet:: see above Discharge Orders Discharge Orders: Discharge Order (Routine); Ordered 09/16/22 Ordered By: Charlene Cantor DS: Summary Time Spent with Patient providing and/or coordinating discharge services: Greater than 30 minutes Status at Discharge Functional status at discharge: independent ambulation Overall status at discharge: patient is progressing back to baseline Mental Status: mental status grossly normal Speech and Movement: speech and movement normal Mood: congruent mood Affect: normal affect Exam Psych Mental Status: mental status grossly normal Speech and Movement: speech and movement normal Mood: congruent mood Affect: normal affect DS: Data Vitals/I&O Vitals and I&O: Vital Signs Temperature 36.6 C 09/16/22 10:31 Temperature Source Temporal Artery Scan 09/15/22 22:55 Pulse 80 09/16/22 10:31 Pulse 76 09/16/22 08:02 Respiratory Rate 17 09/16/22 10:31 Respiratory Effort Normal 09/16/22 02:20 Respiratory Depth Normal 09/16/22 02:20 Respiratory Pattern Normal 09/16/22 02:20 Blood Pressure 169/72 H 09/16/22 10:31 Blood Pressure Mean 84 09/16/22 09:13 Blood Pressure Position Sitting 09/15/22 22:55 Pulse Oximetry 99 09/16/22 10:31 Respiratory End-tidal CO2 27 09/16/22 10:31 Oxygen Delivery Method OxyMask 09/16/22 10:31 Oxygen Flow Rate 8 09/16/22 10:31 Pain Level 0 09/16/22 10:31 Intake & Output 09/15/22 09/15/22 09/16/22 11:59 23:59 11:59 Intake Total 1200 / 1200 Balance 1200 / 1200 Weight 93.894 kg 93.894 kg Intake: IV 1200 / 1200 Other: Emesis Description None Data Completed and Pending Labs on day of discharge: Labs from last 24 hours 09/16/22 09/15/22 09/15/22 02:00 23:15 23:15 WBC 13.79 H RBC 4.86 Hgb 13.8 Hct 42.9 MCV 88 MCH 28.4 MCHC 32.2 RDW 13.7 Plt Count 337 MPV 9.0 Immature Gran % 0.4 Neutrophils % 76.2 Lymphocytes % 17.0 Monocytes % 5.1 Eosinophils % 0.9 Basophils % 0.4 Nucleated RBC % 0.0 Absolute Neutrophils 10.51 H Absolute Lymphocytes 2.34 Absolute Monocytes 0.70 Absolute Eosinophils 0.12 Absolute Basophils 0.06 Sodium 143 Potassium 3.9 Chloride 105 Carbon Dioxide 26.4 Anion Gap 11.6 H BUN 11 Creatinine 1.2 H Est GFR (CKD-EPI 2020) 46.05 Glucose 144 H Calcium 8.7 Total Bilirubin 0.4 AST 18 ALT 20 Alkaline Phosphatase 92 Troponin I < 50 < 50 NT-Pro-B Natriuret Pep 175 Total Protein 7.8 Albumin 4.0 Lipase 17 PFSH All Active Problems (Updated 09/16/22 @ 08:59 by Charlene Cantor DO) Esophageal foreign body (Acute) Tinnitus of left ear (Acute) Sensorineural hearing loss (SNHL) of both ears (Acute) Obesity, Class III, BMI 40-49.9 (morbid obesity) (Acute) Essential hypertension (Acute) [place]/2018[place] [facility] [place]ic limb movement disorder (Acute 08/12/15) Obstructive sleep apnea (Chronic 08/12/15) 2018 pt declines fup Hypothyroidism (Chronic) Depressive disorder (Chronic 07/17/07) Migraine headache (Chronic) GERD (gastroesophageal reflux disease) (Chronic) Medical History Low back pain radiating to both legs (12/09/14) mri : left neural foraminal narrowing L5S1/apparent syrinx of lower thoracic cord- no resp. PT/ :no spinal stenosi/not sx Neck fullness (11/25/13) right scalene fat pad[place] [facility] [place] History History of tooth extraction History of total hysterectomy with removal of both tubes and ovaries Hx of esophagogastroduodenoscopy S/P cataract extraction S/P rotator cuff repair S/P shoulder surgery Family History Mother , age 72 Essential hypertension Breast cancer Sister , age 53 Breast cancer Lung cancer Sister , age 74 Liver cancer Lung cancer Father , age 72 Lung cancer Brother Diabetes Essential hypertension Heart disease Maternal Grandfather , age 72 Lung cancer Pancreatic cancer Paternal Grandfather , age 42 Heart disease Maternal Grandmother , age 81 Diabetes Essential hypertension Stroke Breast cancer Paternal Grandmother No problems noted. Son No problems noted. Daughter No problems noted. Daughter No problems noted. 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 [employer] Pets and animals: No Sexually active: No Do you think of yourself as: straight/heterosexual Current gender identity: female What is your relationship status?: How often do you talk on the phone with friends or family?: three or more times per week How often do you get together with friends or relatives?: once per week How often do you attend denominational or gnosticism services?: decline to answer Do you belong to any clubs or organized social groups?: yes Panel score (0-1 are the most socially isolated patients): 3 What type of physical activity do you participate in: none Frequency: does not exercise Irene/Restorationism: Yazdanism Special irene needs: No Seatbelt use: always Helmet use: No Drive intox or ride w/intox bulk delivery driver: No Do you feel safe at home: Yes Do you feel safe in your relationship?: Yes Additional Social history: Enjoys cake decorating, baking. Time Spent with Patient Time Spent with Patient: <45 minutes Time was spent: obtaining and/or reviewing separately otained hiistory, ordering medications,tests, procedures, referring, communicating with other health health careers instructor, indepentently interpreting results, counseling the patient and care coordination
--- NOTE | 2022-09-16 10:37 | W.PM.ENDDOP ---
Date of service: 09/16/22 Time of Service: 10:37 Endoscopy Report DATE OF PROCEDURE: 09/16/22 PRE-OP DIAGNOSIS: Esophageal foreign body POST-OP DIAGNOSIS: other (Hiatal hernia/reflux) SURGEON: Charlene Cantor ANESTHESIA TYPE: General LMA/ETT ESTIMATED BLOOD LOSS: 0 PATHOLOGY: none sent COMPLICATIONS: None DISPOSITION: PACU PROCEDURE DESCRIPTION: After informed consent was obtained the patient was take to the procedure room and placed in a supine position. Monitors were applied and a time out was done. The patients name, date of , procedure type, allergies to medications and metal in their body was reviewed. General anesthesia is administered per the department of anesthesia once sedated and comfortable the gastroscope was advanced through the oropharynx which was grossly normal into the esophagus. The proximal is normal. In the mid and lower esophagus, she has a large food impaction that almost completely fills the entire esophagus. 60 minutes is spent removing food from the esophagus using a combination of suction and lavage, and a Hart net. Finally we were able to lavage the remaining contents into the stomach. She does have a very large at least 4 cm style sliding hiatal hernia. She also has a very dilated esophagus in the midportion. This appears to be a chronic longstanding problem for her. No biopsies were taken in the acute setting. As we are lavaging material into the stomach, fluid is refluxing back into the mid esophagus, even with the patient's head at 30 degrees. The scope was removed and the patient was woken up and taken back to PACU in stable condition. Family was apprised of patient's condition. See discharge instructions
--- NOTE | 2022-09-16 10:45 | W.ANESPOSTOP ---
Postoperative Evaluation Date, Time and Location Date Performed: 09/16/22 Time Performed: 10:45 Patient Location: PACU Vital Signs Most Recent Imported Vital Signs: Most Recent Vital Signs Temp Pulse Resp BP Pulse Ox 36.6 C 72 16 172/66 H 97 09/16/22 10:41 09/16/22 10:41 09/16/22 10:41 09/16/22 10:41 09/16/22 10:41 Pain Score Most Recent Pain Score: Most Recent Pain Score Pain Level 0 09/16/22 10:41 Assessment Mental Status: Awake (Alert & Oriented to Patient Baseline) Airway and Respiratory Function: Patent airway with normal (patient baseline) respiratory exam Cardiovascular Function: Hemodynamically Stable Hydration Status: Adequately Hydrated Nausea & Vomiting: No Nausea or Vomiting Pain: Pt. Denies Any Pain Peripheral Nerve Block: Patient did not receive a nerve block
== END 2022-09-16 12:35 | disposition home or self-care (01) ==
LOC: ER 09-16 09:06 → DSU 09-16 09:21 → ER 11-29 12:13 → DSU 11-29 12:15
PROVIDERS: Emergency Medicine; Emergency Provider Emergency Medicine; PCP Family Medicine; Visit Provider Surgery
PROC: 0DC68ZZ Extirpation of Matter from Stomach, Via Natural or Artificial Opening Endoscopic (ICD-10-PCS; CPT 43247; principal; 2022-09-16 09:15)
DX: T18.108A Unspecified foreign body in esophagus causing other injury, initial encounter (principal); K44.9 Diaphragmatic hernia without obstruction or gangrene; K21.9 Gastro-esophageal reflux disease without esophagitis; K22.89 Other specified disease of esophagus; I10 Essential (primary) hypertension; G47.33 Obstructive sleep apnea (adult) (pediatric); E66.9 Obesity, unspecified; Z68.41 Body mass index [BMI] 40.0-44.9, adult; G43.909 Migraine, unspecified, not intractable, without status migrainosus; Z79.899 Other long term (current) drug therapy
CPT/HCPCS: 43215; 80053; 83690; 93005; 99235; 71045; 74177; 83880; 84484; 85025; 93010; J1100; J2270; J2405; J2704; J2765; J3490

== ENCOUNTER 2022-11-21 04:11 | Outpatient (CLI) | payer MEDICARE, OTHER, SELFPAY ==
[2022-11-21 12:59] LABS: BUN 9 mg/dL (7-18); CREATININE 0.9 mg/dL (0.55-1.02); Calcium 8.8 mg/dL (8.5-10.1); Chloride 104 mmol/L (98-107); Estimated GFR 65.03 (mL/min/1.73m2); Glucose 99 mg/dL (74-106); Potassium 4.1 mmol/L (3.5-5.1); Sodium 140 mmol/L (136-145)
== END 2022-11-21 04:12 | disposition home or self-care (01) ==
LOC: LBO 04:11
PROVIDERS: PCP Family Medicine; Visit Provider Family Medicine
DX: I10 Essential (primary) hypertension (principal)
CPT/HCPCS: 36415; 80048

== ENCOUNTER 2023-07-12 18:09 | Inpatient (IN) | payer MEDICARE, OTHER, SELFPAY ==
[2023-07-12] VITALS (59 sets, daily range): BP systolic 110–207; BP diastolic 39–136; PULSE 35–108; RESP 9–33; TEMP 36.4; O2SAT 92–100
--- NOTE | 2023-07-12 18:00 | RT.EKG_ITS ---
APPROVED REPORT Exam: Resting ECG Reason for Exam: Chest pain Patient Location: E HR:89 bpm ECG Measurements Heart Rate 89 AXIS CA 162 P 59 QRSd 86 QRS -47 QT 364 T 60 QTc 443 Conclusion Sinus rhythm...normal P axis, V-rate 60- 99 Left anterior fascicular block...axis(240,-40), init forces inf Narrow complex normal sinus rhythm at a rate of 89. Left axis deviation no signs of LVH based on vol tage criteria in aVL. Intervals within normal limits. No ST segment abnormalities. No T wave versi ons. No acute injury pattern. Appears similar to prior dated last year. Poor R wave progression.
--- NOTE | 2023-07-12 18:25 | ED.GENADUL_ITS ---
Discharge Plan Disposition Patient Disposition: Admit to [facility] Discharge Details Clinical Impression: Non-ST elevation IN (NSTEMI), Junctional escape rhythm, Nausea & vomiting Admit Date/Time: 07/13/23 02:42 Admit Provider: Riley Samuel Attending Provider: Riley Samuel Primary Care Provider: Dinora Fan ED Provider: Gonzalez Chong Discharge Data Discharge Date/Time-TO BE ENTERED AT DEPARTURE: 07/13/23 11:04 HPI General Date/Time Provider Initiated Documentation: 07/12/23 18:24 . HPI Narrative: MDM This is an uncomfortable appearing normothermic and not tachycardic 78-year-old female with chest pain radiating to her back with nausea vomiting concerning for aortic dissection for which patient will go for CTA chest abdomen pelvis. No pain or proportion to suggest necrotizing soft tissue infection. Equal breath sounds and no trauma so doubt pneumothorax. No shortness of breath to suggest PE. Patient has been vomiting as a result I am suspicious for esophageal rupture so we will assess with CT. Not hypotensive nor dialysis patient so doubt tamponade. No rash to chest to suggest zoster. No fevers no cough to suggest pneumonia. ECG is nonischemic however based on age and risk factors will obtain 2 sets of troponins. Patient does have a known hiatal hernia and this certainly could be the cause of her symptoms. 7:24 PM Negative troponin. Comprehensive metabolic panel with mild hyperglycemia but no anion gap normal bicarbonate??not consistent with DKA. Normal LFTs. No ANGELES. Normal reassuring lipase. Magnesium reassuring. CBC lacks anemia thrombocytopenia and leukocytosis. 9:18 PM Patient feeling improved. CT scan read as concern for probable mild acute diverticulitis. When I reassessed the patient she was reporting that she had no lower abdominal pain. She says that she does routinely have diarrhea. Given no abdominal tenderness fevers nor any significant changes so I felt that the risk of antibiotics outweigh the benefits. Furthermore patient had no signs of abscess or perforation. I did advise patient to return to the ED if she developed any fevers abdominal pain or change in her diarrhea. Still pending repeat troponin. 10:06 PM Markedly positive repeat troponin consistent with NSTEMI for which patient will receive heparinization and aspirin. Will repeat ECG and touch base with cardiology at [facility]. Patient denies chest pain at the moment so will defer nitroglycerin. 11pm I spoke to Dr. Brad Raman from cardiology. He accepted the patient in transfer from [facility] to [facility] by Dr. Felix. He advised clopidogrel load. I was called into the patient's room as she had lost consciousness. Her heart rate was in the 30s. She did not have P waves on the monitor. I treated her with 0.25 mg of atropine. Her blood pressure was normal. She had a narrow complex rate at approximately 40-45 beats per minute consistent with a junctional rhythm. 11:23 PM I spoke with Dr. Samuel who agreed graciously to accept the patient for local hospitalization. He requested high-dose atorvastatin which I ordered 80 mg. Chronic conditions affecting the care of the patient: Elevated BMI hypertension History obtained from an outside historian: N/A External record review: N/A [Diagnostic interpretations performed by me: Per my independent interpretation EKG shows: Narrow complex normal sinus rhythm at a rate of 89. Left axis deviation no signs of LVH based on voltage criteria in aVL. Intervals within normal limits. No ST segment abnormalities. No T wave versions. No acute injury pattern. Appears similar to prior dated last year. Poor R wave progression. ECG #2 Narrow complex normal sinus rhythm at a rate of 84. Left axis deviation no signs of LVH based on voltage criteria in aVL. Improved T wave inversion in V2. Poor R wave progression. No ST segment abnormalities. No T wave inversions. No acute injury pattern. ECG #3 Narrow complex normal sinus rhythm at a rate of 63. Left axis deviation no signs of LVH based on voltage criteria.QTc within normal limits. No acute injury pattern. Poor R wave progression similar to prior. Mild T wave flattening left lateral chest wall leads new compared to prior dated earlier this evening. ]Medications: Famotidine fentanyl Social determinants of health affecting disposition: N/A Management discussed with: N/A Treatment/interventions considered: N/A Response to therapies provided:Famotidine fentanyl HPI This is an 78-year-old female with a history of elevated BMI and reflux arrived to the emergency department via private vehicle in the setting of chest pain. Patient reports that she developed chest pain that began approximately 45 minutes ago. She said that it is in the central part of her chest and travels into her back. She has been nauseous and vomiting. She denies exacerbators and alleviators. The pain does not radiate denies abdominal pain. No routine tobacco, ethanol, nor illicits.. No dysuria. No frequency. Patient has had prior symptoms that have felt similar to the past. No recent falls. Exam General: Well-appearing in no acute distress speaking in complete sentences. Head: Normocephalic, atraumatic. Eye:Extraocular eye movements intact. No conjunctival injection. No scleral icterus. Ear, nose, mouth, throat: Grossly normal inspection. Normal voice, handling secretions normally. Neck: Trachea midline. Cardiovascular: Well-perfused distal extremities.Regular rate and rhythm Respiratory: Nonlabored respiration.Clear lungs bilaterally Gastrointestinal: Nondistended abdomen.Soft nontender. Musculoskeletal: No edema. Moving all 4 extremities spontaneously. Skin: Normal for age and race, grossly normal temperature and turgor. No acute rash. Neurologic: Alert and appropriate, no apparent acute deficits. Psychiatric: Mood and manner are appropriate. Grooming and personal hygiene are appropriate. Related Data Home Medications Medication Instructions Recorded Confirmed ondansetron 4 mg disintegrating 4 mg PO Q6H PRN nausea and 09/01/21 07/12/23 tablet vomiting #10 tabs levothyroxine 75 mcg capsule 75 mcg PO DAILY #30 caps 08/06/22 07/12/23 sumatriptan succinate 100 mg tablet See Rx Instructions PO .COMPLEX 08/06/22 07/12/23 #20 tabs rabeprazole 20 mg tablet,delayed 20 mg PO BID #180 tabs 10/15/22 07/12/23 release losartan 100 mg tablet 100 mg PO DAILY #90 tabs 12/05/22 07/12/23 Previous Rx's Medication Instructions Recorded ondansetron 4 mg disintegrating 4 mg PO Q6H PRN nausea and 09/01/21 tablet vomiting #10 tabs levothyroxine 75 mcg capsule 75 mcg PO DAILY #30 caps 08/06/22 sumatriptan succinate 100 mg tablet See Rx Instructions PO .COMPLEX 08/06/22 #20 tabs rabeprazole 20 mg tablet,delayed 20 mg PO BID #180 tabs 10/15/22 release losartan 100 mg tablet 100 mg PO DAILY #90 tabs 12/05/22 Allergies Allergy/AdvReac Type Severity Reaction Status Date / Time Penicillins Allergy Severe THROAT Verified 07/12/23 18:17 SWELLS General Stated Complaint: Chest Pain LES: 2 Course Vital Signs Vital signs: Vital Signs Temperature 36.4 C 07/12/23 18:11 Pulse 99 H 07/12/23 18:11 Respiratory Rate 22 07/12/23 18:11 Blood Pressure 168/87 H 07/12/23 18:11 Pulse Oximetry 99 07/12/23 18:11 Temperature 36.4 C 07/12/23 18:11 Temperature Source Oral 07/12/23 18:11 Pulse 99 H 07/12/23 18:11 Respiratory Rate 22 07/12/23 18:11 Respiratory Effort Normal 07/12/23 18:19 Blood Pressure 168/87 H 07/12/23 18:11 Blood Pressure Position Supine 07/12/23 18:11 Pulse Oximetry 99 07/12/23 18:11 Oxygen Delivery Method Room Air 07/12/23 18:11 Oxygen Flow Rate 0 07/12/23 18:11 Pain Level 7 07/12/23 18:19 Medical Decision Making Quality:SDOH Health Related Social Needs: No Data to Display Critical Care Time Critical Care Time Critical Care Time: Yes Total Critical Care Time: 30 Attestation: Bedside assessment and treatment of dysrhythmia in the setting of ACS PFSH All Active Problems (Updated 07/13/23 @ 22:31 by Gonzalez Chong MD) Nausea & vomiting (Acute) Junctional escape rhythm (Acute) Diverticulitis large intestine (Acute) Junctional bradycardia (Acute) Non-ST elevation IN (NSTEMI) (Acute) Tinnitus of left ear (Acute) Sensorineural hearing loss (SNHL) of both ears (Acute) Obesity, Class III, BMI 40-49.9 (morbid obesity) (Acute) Essential hypertension (Chronic) Sliding hiatal hernia (Acute ~01/2018) [facility] Periodic limb movement disorder (Acute 08/12/15) Obstructive sleep apnea (Chronic 08/12/15) 2018 pt declines fup Hypothyroidism (Chronic) Depressive disorder (Chronic 07/17/07) GERD (gastroesophageal reflux disease) (Chronic) Migraine headache (Chronic) Medical History (Updated 07/13/23 @ 22:31 by Gonzalez Chong MD) Esophageal foreign body s/p endoscopy 08/2022; managing with dietary change. Neck fullness (11/25/13) right scalene fat pad/ eval. [facility] Low back pain radiating to both legs (12/09/14) mri : left neural foraminal narrowing L5S1/apparent syrinx of lower thoracic cord- no resp. PT/ :no spinal stenosi/not sx Surgical History Hx of esophagogastroduodenoscopy S/P cataract extraction S/P rotator cuff repair S/P shoulder surgery History of tooth extraction History of total hysterectomy with removal of both tubes and ovaries Family History (Updated 11/15/22 @ 14:39 by Shanna Roldan) Mother , age 72 Essential hypertension Breast cancer Sister , age 53 Breast cancer Lung cancer Sister , age 74 Liver cancer Lung cancer Father , age 72 Lung cancer Brother Diabetes Essential hypertension Heart disease Maternal Grandfather , age 72 Lung cancer Pancreatic cancer Paternal Grandfather , age 42 Heart disease Maternal Grandmother , age 81 Diabetes Essential hypertension Stroke Breast cancer Paternal Grandmother No problems noted. Son No problems noted. Daughter No problems noted. Daughter No problems noted. 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 [employer] Pets and animals: No Sexually active: No Do you think of yourself as: straight/heterosexual Current gender identity: female What is your relationship status?: How often do you talk on the phone with friends or family?: three or more times per week How often do you get together with friends or relatives?: three or more times per week How often do you attend moravian or anabaptism services?: 4 or more times per year Do you belong to any clubs or organized social groups?: yes Panel score (0-1 are the most socially isolated patients): 4 What type of physical activity do you participate in: none Frequency: does not exercise Irene/Cheondoism: Quaker Special irene needs: No Seatbelt use: always Helmet use: No Drive intox or ride w/intox escort car driver: No Do you feel safe at home: Yes Do you feel safe in your relationship?: Yes Additional Social history: Enjoys cake decorating, baking.
[2023-07-12] MEDS: Ondansetron 4 MG/2 ML VIAL IVP (18:27)
[2023-07-12 18:49] LABS: Abs Immature Grans 0.03 10^3/uL (0.0-0.06); Absolute Basophil Count 0.07 10^3/uL (0.0-0.2); Absolute Eosinophil Count 0.24 10^3/uL (0.0-0.7); Absolute Lymphocyte Count 3.55 10^3/uL (1.2-3.4); Absolute Monocyte Count 0.69 10^3/uL (0.1-0.8); Absolute Neutrophil Count 4.57 10^3/uL (1.2-6.7); Basophils % 0.8; Eosinophils % 2.6; HCT 42.1 % (36.0-46.0); HGB 13.6 g/dL (11.2-15.7); Immature Grans % 0.3; Lymphocytes % 38.8; MCH 29.1 pg (27.0-33.0); MCHC 32.3 % (32.0-36.0); MCV 90 fL (80-95); MPV 9.2 fL (8.0-11.0); Monocytes % 7.5; Platelet Count 337 10^3/uL (130-400); RBC 4.67 10^6/uL (3.93-5.22); RDW 13.3 % (11.7-14.6); RDW-SD 43.9 fL; WBC 9.15 10^3/uL (4.4-10.8)
[2023-07-12] MEDS: Famotidine 20 MG/2 ML VIAL 40 MG IVP (18:52)
[2023-07-12] MEDS: Normal Saline - Diluent 50 ML VIAL IJ (18:58)
[2023-07-12] MEDS: Omnipaque 350 MG/ML 100 ML BTL IJ (19:00)
[2023-07-12] MEDS: Normal Saline Flush 10 ML SYR IVP (19:02)
[2023-07-12 19:12] LABS: ALT 26 U/L (14-59); AST 22 U/L (15-37); Albumin 3.7 g/dL (3.4-5.0); Alkaline Phosphatase 83 U/L (46-116); Anion Gap 10.5 mmol/L (3-11); BUN 16 mg/dL (7-18); Bilirubin, Total 0.3 mg/dL (0.2-1.0); CO2 26.5 mmol/L (21.0-32.0); CREATININE 0.9 mg/dL (0.55-1.02); Calcium 9.3 mg/dL (8.5-10.1); Chloride 105 mmol/L (98-107); Estimated GFR 64.63 (mL/min/1.73m2); Glucose 127 mg/dL (74-106); Lipase 18 U/L (16-77); Magnesium 2.2 mg/dL (1.8-2.4); Potassium 3.9 mmol/L (3.5-5.1); Sodium 142 mmol/L (136-145); Total Protein 7.5 g/dL (6.4-8.2); Troponin I < 50 ng/L (< or =60)
--- NOTE | 2023-07-12 19:12 | DI.CT_ITS ---
Exam(s) CT THORAX ABD/PEL CTA EXAM: CT THORAX ABD/PEL CTA CLINICAL HISTORY: Chest pain radiating to back. TECHNIQUE: Imaging Protocol: Axial CT angiography was performed with multi-slice acquisition and m ulti-planar and/or 3D reconstructions. CONTRAST MATERIAL: Intravenous: Omnipaque 350 contrast volume:100 mL Oral: No COMPARISON: CT CT ABDOMEN PELVIS W from 09/16/2022 FINDINGS: CHEST: Tracheobronchial tree: Patent where visualized. Pulmonary parenchyma: No consolidation or dominant measurable mass. No architectural distortion. Pulmonary Arteries: No evidence of filling defect to suggest pulmonary emboli. Mediastinum and Leslie: No dominant adenopathy or fluid collection. The esophagus is unremarkable. Ther e is a large hiatal hernia. Visualized thyroid: Unremarkable. Pleura: No effusion or pneumothorax. Heart: The heart is not dilated. No coronary artery calcifications are seen. No pericardial effusion. Aorta: Thoracic aorta non-dilated. Atherosclerotic calcification is present. Soft Tissues: Unremarkable. Bones: Within normal limits for the patient's age. ABDOMEN AND PELVIS: Abdomen: Celiac axis/mesenteric arteries: No evidence of occlusion or significant stenosis. Renal Arteries: No evidence of occlusion or significant stenosis. Mild atherosclerotic calcification at the origins of the renal arteries. Aorta: No evidence of occlusion or significant stenosis. No aneurysm or dissection. Atheroscleroti c calcifications are present. Pelvis: Iliac Arteries: No evidence of occlusion or significant stenosis. Common Femoral Arteries: No evidence of occlusion or significant stenosis. ABDOMEN: Liver: Normal density. No measurable mass. Gallbladder and Biliary Tract: No radiodense calculus or dilation. Pancreas: There is fatty atrophy of the pancreas. Spleen: Normal. Adrenals: No masses seen. Kidneys: Normal size, contour and axis. No radiodense stones or obstructive uropathy. No masses seen. Bowel: There is diverticulosis of the colon. There may be mild fat stranding adjacent to the mid sigm oid colon. Early diverticulitis cannot be excluded. There is no evidence of bowel obstruction or mona l wall thickening. No evidence of appendicitis. Peritoneal Cavity: No ascites, collection or mesenteric inflammatory response. No free air. Lymph Nodes: Within normal limits. Bones: Within normal limits for the patient's age. Soft Tissues: Unremarkable. PELVIS: Bladder: Symmetric distention, no gross wall thickening. Reproductive Organs: Status post hysterectomy. Lymph Nodes: Within normal limits. Bones: Within normal limits for the patient's age. IMPRESSION: 1. No evidence of aortic dissection or aneurysm. 2. Question of mild inflammation seen around the mid sigmoid colon suggesting early diverticulitis. 3. No acute pulmonary process. No evidence of a pulmonary embolism. RADIATION DOSE DELIVERED: Total DLP DATA REPOSITORY: All CT scans at this facility are submitted to the National Radiology Data Registry (NRDR) Dose Index Registry (DIR) with the [employer] (ACR). RADIATION OPTIMIZATION: All CT scans at this facility use at least one of these dose optimization te chniques: automated exposure control; mA and/or kV adjustment per patient size (includes targeted exa ms where dose is matched to clinical indication); or iterative reconstruction.
--- NOTE | 2023-07-12 19:35 | DI.VRAD_ITS ---
PROCEDURE INFORMATION: Exam: CTA Chest With Contrast CTA Abdomen and Pelvis With Contrast Exam date and time: 07/12/2023 7:02 PM Age: 78 years old Clinical indication: Other: Chest pain radiating to back TECHNIQUE: Imaging protocol: Computed tomographic angiography of the chest with contrast. Exam focused on the arteries. Computed tomographic angiography of the abdomen and pelvis with contrast. Exam focused on the arteries. 3D rendering (Not supervised by radiologist): MIP and/or 3D reconstructed images were created by the technologist. Contrast material: OMNIPAQUE 350; Contrast volume: 100 ml; Contrast route: INTRAVENOUS (IV); COMPARISON: CR XR CHEST 1V IN DI DEPT 09/16/2022 12:07 AM FINDINGS: VASCULATURE: Pulmonary arteries: No acute pulmonary emboli. Aorta: Minimal atherosclerotic disease of the thoracic aorta, without aneurysm or dissection. Celiac trunk and mesenteric arteries: No occlusion or significant stenosis. Renal arteries: No occlusion or significant stenosis. Right iliac arteries: No occlusion or significant stenosis. Left iliac arteries: No occlusion or significant stenosis. Veins: Phleboliths within the pelvis. CHEST: Lungs: Unremarkable. No consolidation. No masses. Pleural spaces: Unremarkable. No pneumothorax. No pleural effusion. Heart: Unremarkable. No cardiomegaly. No pericardial effusion. Diaphragm: Moderate-sized hiatal hernia. ABDOMEN AND PELVIS: Liver: No mass. Gallbladder and bile ducts: Unremarkable. No calcified stones. No ductal dilation. Pancreas: Unremarkable. No mass. No ductal dilation. Spleen: Unremarkable. No splenomegaly. Adrenal glands: Unremarkable. No mass. Kidneys and ureters: Unremarkable. No solid mass. No hydronephrosis. Stomach and bowel: Colonic diverticulosis, with probable minimal acute diverticulitis involving the mid sigmoid colon, where there is minimal wall thickening and adjacent fat stranding. No perforation or abscess. Appendix: No evidence of appendicitis. Intraperitoneal space: Unremarkable. No free air. No significant fluid collection. Urinary bladder: Unremarkable. No mass. Reproductive: Unremarkable as visualized. Lymph nodes: Unremarkable. No enlarged lymph nodes. Bones/joints: Unremarkable. No acute fracture. Soft tissues: Unremarkable. IMPRESSION: 1. No acute thoracic abnormality. 2. Colonic diverticulosis, with probable minimal acute diverticulitis involving the mid sigmoid colon, where there is minimal wall thickening and adjacent fat stranding. No perforation or abscess. 3. Other (less critical/noncritical/incidental) findings as above; please refer to the body of report for further details. Dictated and Authenticated by: Marcelo Fajardo MD. Ordering:GAETANO Roth MD
[2023-07-12] MEDS: fentaNYL 100 MCG/2 ML VIAL 75 MCG IVP (19:41)
[2023-07-12 21:45] LABS: Troponin I 239 ng/L (< or =60)
--- NOTE | 2023-07-12 22:00 | RT.EKG_ITS ---
APPROVED REPORT Exam: Resting ECG Reason for Exam: sob Patient Location: E HR:84 bpm ECG Measurements Heart Rate 84 AXIS DC 180 P 43 QRSd 80 QRS -45 QT 376 T 49 QTc 446 Conclusion Sinus rhythm...normal P axis, V-rate 60- 99 Left anterior fascicular block...axis(240,-40), init forces inf Left ventricular hypertrophy...multiple voltage criteria Narrow complex normal sinus rhythm at a rate of 84. Left axis deviation no signs of LVH based on vol tage criteria in aVL. Improved T wave inversion in V2. Poor R wave progression. No ST segment abno rmalities. No T wave inversions. No acute injury pattern.
[2023-07-12] MEDS: Aspirin 81 MG CHEW 324 MG CH (22:18)
[2023-07-12] MEDS: Heparin in 0.45% NaCl 25,000 UNIT/250 ML BAG 10 UNIT IV (22:19)
--- NOTE | 2023-07-12 22:26 | NUR.NOTE ---
2199 Ayo Pinedo RN assumed care of PTNursing Note:
--- NOTE | 2023-07-12 22:45 | RT.EKG_ITS ---
APPROVED REPORT Exam: Resting ECG Reason for Exam: sob Patient Location: E HR:63 bpm ECG Measurements Heart Rate 63 AXIS UT 161 P 42 QRSd 82 QRS -42 QT 435 T 25 QTc 446 Conclusion Sinus rhythm...normal P axis, V-rate 60- 99 Left anterior fascicular block...axis(240,-40), init forces inf Narrow complex normal sinus rhythm at a rate of 63. Left axis deviation no signs of LVH based on vol tage criteria.QTc within normal limits. No acute injury pattern. Poor R wave progression similar to prior. Mild T wave flattening left lateral chest wall leads new compared to prior. Prior dated ear lier treatment.
[2023-07-12] MEDS: nitroGLYcerin 0.4 MG TAB (22:50)
[2023-07-12] MEDS: Clopidogrel 300 MG TAB PO (23:11)
[2023-07-12] MEDS: Atorvastatin 40 MG TAB 80 MG PO (23:34)
[2023-07-13] VITALS (169 sets, daily range): BP systolic 140–203; BP diastolic 34–85; PULSE 57–119; RESP 7–25; TEMP 36.8; O2SAT 91–98
--- NOTE | 2023-07-13 02:35 | HPE_ITS ---
Date of service: 07/12/23 Time of Service: 23:30 Assessment and Plan Assessment and plan (1) Non-ST elevation NE (NSTEMI): Start date: 07/12/23 Status: Acute Assessment and plan: This is an 78-year-old lady who presented with retrosternal chest pain radiating to the back and was found to have a non-STEMI with initial troponin was negative and returning positive. She had a brief episode of bradycardia which was symptomatic requiring a low-dose of atropine treatment and appeared to be a junctional rhythm as a consequence of her non-STEMI. Her retrosternal chest pain was relieved with nitroglycerin sublingually x 1 prior to this episode. She will be admitted for ICU level of care with soap patches in place on heparin infusion status post loading dose of aspirin and Plavix as well as high-dose atorvastatin. She does not have a history of previous CAD or syncope. She is comfortable with no further bradycardic episodes but moderately hypertensive which will be treated with metoprolol in addition to her usual dose of losartan. She was [place] [facility] [place] under Dr. Felix pending bed availability. We will continue heparin infusion with medical therapy and trend labs with troponin. She is a full code. (2) Junctional bradycardia: Start date: 07/12/23 Status: Acute Assessment and plan: Brief episode status post treatment of chest pain with non-STEMI. Monitor cardiac status with ZOLL pads in place. There have been no further episodes. (3) Diverticulitis large intestine: Start date: 07/12/23 Status: Acute Assessment and plan: This was found on CT of the abdomen during workup of the patient's presenting retrosternal chest pain. She has no complaints of abdominal pain or clinical findings on exam and this appears to be a subclinical inflammation of the mid sigmoid which should be addressed and treated if this becomes symptomatic during her evaluation of her non-STEMI. Antibiotics were not initiated with patient having no fever or elevated WBC. This can be reviewed at [facility] once transferred. Qualifiers: Diverticulitis bleeding: without bleeding Diverticulitis complication: without perforation or abscess Qualified Code(s): K57.32 - Diverticulitis of large intestine without perforation or abscess without bleeding (4) Essential hypertension: Status: Chronic Assessment and plan: Continue losartan and add metoprolol 25 mg every 6 hours. (5) Hypothyroidism: Status: Chronic Assessment and plan: Continue outpatient supplement. Qualifiers: Hypothyroidism type: acquired Qualified Code(s): E03.9 - Hypothyroidism, unspecified (6) GERD (gastroesophageal reflux disease): Status: Chronic Assessment and plan: Continue outpatient PPI. Long-term patient may need further evaluation of her reflux symptoms and postprandial nausea and vomiting. Gallbladder was normal on CT but should be followed up with ultrasound. Qualifiers: Esophagitis presence: without esophagitis Qualified Code(s): K21.9 - Gastro-esophageal reflux disease without esophagitis History of Present Illness History of Present Illness Chief Complaint: Chest pain radiating to back, syncope Narrative: This is an 78-year-old female patient with a history of having postprandial nausea and vomiting after she eats especially at lunchtime but was not having chest discomfort and only heartburn which she thought was from her hiatal hernia with these episodes. On the day of admission she had a similar episode but had severe retrosternal chest pain which was achy and not pressure-like or squeezing along with her usual heartburn sensation she was previously having. She also had nausea with vomiting and dyspnea but no diaphoresis. The pain did radiate into her back. She was brought to the hospital by her in their private vehicle and evaluated in the ED. initial EKG showed left anterior fascicular block with sinus rhythm and probable left atrial enlargement but no acute ST-T changes. She was given nitroglycerin sublingually which did completely relieve her discomfort and pain retrosternally. CTA did not reveal any aortic dissection but did suggest that sigmoid diverticulitis with patient not complaining of abdominal pain. She does still have her gallbladder. The patient's initial troponin was normal but the delta will troponin was positive being over 200. During the patient's evaluation she had an episode bradycardia with junctional rhythm and had a near syncopal or syncopal episode while lying in bed requiring low-dose atropine. She does have ZOLL pads in place presently but has had no further bradycardia episodes. She has had no previous episodes of syncope or cardiovascular events. She is overweight and does have hypertension but is not on treatment for hyperlipidemia. She is not a diabetic. [facility] cardiology was called after the patient's elevated delta troponin and an episode. They advised to treat as a non-STEMI with loading dose of aspirin and Plavix and initiation of heparin infusion. This was initiated with patient being excepted to [facility] [place] when bed is available. Dr. Felix was excepting physician. Patient is now resting comfortably with no chest pain. She is a full code. Review of Systems Narrative: 13 point review of systems otherwise unrevealing or stable. Patient is overweight. She does have symptoms of reflux with a hiatal hernia which has been worse the last 3 days as mentioned. She has never had retrosternal chest pain or syncope. He denies any focal neurological complaints. PFSH All Active Problems (Updated 07/13/23 @ 04:26 by Riley Samuel) Diverticulitis large intestine (Acute) Junctional bradycardia (Acute) Non-ST elevation NE (NSTEMI) (Acute) Tinnitus of left ear (Acute) Sensorineural hearing loss (SNHL) of both ears (Acute) Obesity, Class III, BMI 40-49.9 (morbid obesity) (Acute) Essential hypertension (Chronic) Sliding hiatal hernia (Acute ~01/2018) [facility] Periodic limb movement disorder (Acute 08/12/15) Obstructive sleep apnea (Chronic 08/12/15) 2018 pt declines fup Hypothyroidism (Chronic) Depressive disorder (Chronic 07/17/07) GERD (gastroesophageal reflux disease) (Chronic) Migraine headache (Chronic) Medical History (Updated 07/13/23 @ 04:26 by Riley Samuel) Esophageal foreign body s/p endoscopy 08/2022; managing with dietary change. Neck fullness (11/25/13) right scalene fat pad/ eval. [facility] Low back pain radiating to both legs (12/09/14) mri : left neural foraminal narrowing L5S1/apparent syrinx of lower thoracic cord- no resp. PT/ :no spinal stenosi/not sx Surgical History Hx of esophagogastroduodenoscopy S/P cataract extraction S/P rotator cuff repair S/P shoulder surgery History of tooth extraction History of total hysterectomy with removal of both tubes and ovaries Family History (Updated 11/15/22 @ 14:39 by Shanna Roldan) Mother , age 72 Essential hypertension Breast cancer Sister , age 53 Breast cancer Lung cancer Sister , age 74 Liver cancer Lung cancer Father , age 72 Lung cancer Brother Diabetes Essential hypertension Heart disease Maternal Grandfather , age 72 Lung cancer Pancreatic cancer Paternal Grandfather , age 42 Heart disease Maternal Grandmother , age 81 Diabetes Essential hypertension Stroke Breast cancer Paternal Grandmother No problems noted. Son No problems noted. Daughter No problems noted. Daughter No problems noted. 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 [employer] Pets and animals: No Sexually active: No Do you think of yourself as: straight/heterosexual Current gender identity: female What is your relationship status?: How often do you talk on the phone with friends or family?: three or more times per week How often do you get together with friends or relatives?: three or more times per week How often do you attend islam or hinduism services?: 4 or more times per year Do you belong to any clubs or organized social groups?: yes Panel score (0-1 are the most socially isolated patients): 4 What type of physical activity do you participate in: none Frequency: does not exercise Irene/Voodoo: Hinduism Special irene needs: No Seatbelt use: always Helmet use: No Drive intox or ride w/intox diesel pile driver operator: No Do you feel safe at home: Yes Do you feel safe in your relationship?: Yes Additional Social history: Enjoys cake decorating, baking. Meds Allergies and Home Medications Allergies Allergy/AdvReac Type Severity Reaction Status Date / Time Penicillins Allergy Severe THROAT Verified 07/12/23 18:17 SWELLS Home Medications Medication Instructions Recorded Confirmed Type ondansetron 4 mg disintegrating 4 mg PO Q6H PRN nausea and 09/01/21 07/12/23 Rx tablet vomiting #10 tabs levothyroxine 75 mcg capsule 75 mcg PO DAILY #30 caps 08/06/22 07/12/23 Rx sumatriptan succinate 100 mg tablet See Rx Instructions PO .COMPLEX 08/06/22 07/12/23 Rx #20 tabs rabeprazole 20 mg tablet,delayed 20 mg PO BID #180 tabs 10/15/22 07/12/23 Rx release losartan 100 mg tablet 100 mg PO DAILY #90 tabs 12/05/22 07/12/23 Rx Exam Narrative Exam Narrative: General: Patient appears appropriate for age, slightly anxious but in no acute distress. Alert and oriented x 3. She is morbidly obese. HEENT: Normocephalic, eyes with pupils equal and reactive to light symmetrically, extraocular movement intact and sclera anicteric. Oropharynx with moist mucosa with patient being edentulous. Neck: Supple without JVD. Back: Kyphotic without CVA tenderness. Skin: Normal color, moist especially over the back and warm. Lungs: Fair aeration with occasional expiratory crackles in the bases clearing with deep inspiration. No focalizing rales or rhonchi. Breast: Exam deferred. Heart: Regular rate and rhythm with S2 gallop intermittently but no murmurs or rubs. Abdomen: Obese contour, soft and nontender to palpation with no palpable hepatosplenomegaly. Negative Webster sign. Bowel sounds positive in all quadrants. No guarding or rebound especially over left lower abdomen. Genitalia/rectal: Exam deferred. Extremities: Nonpitting edema lower extremities with no cyanosis or clubbing. Good capillary refill. Neuro: Cranial nerves II through XII grossly intact. No focal motor deficits and no tremor. Psych: Slightly anxious with normal mood. No normal thought processes. Remote and recent memory intact. Results Imaging Imaging Studies: Exam: CTA Chest With Contrast CTA Abdomen and Pelvis With Contrast Exam date and time: 07/12/2023 7:02 PM Age: 78 years old Clinical indication: Other: Chest pain radiating to back COMPARISON: CR XR CHEST 1V IN DI DEPT 09/16/2022 12:07 AM FINDINGS: VASCULATURE: Pulmonary arteries: No acute pulmonary emboli. Aorta: Minimal atherosclerotic disease of the thoracic aorta, without aneurysm or dissection. Celiac trunk and mesenteric arteries: No occlusion or significant stenosis. Renal arteries: No occlusion or significant stenosis. Right iliac arteries: No occlusion or significant stenosis. Left iliac arteries: No occlusion or significant stenosis. Veins: Phleboliths within the pelvis. CHEST: Lungs: Unremarkable. No consolidation. No masses. Pleural spaces: Unremarkable. No pneumothorax. No pleural effusion. Heart: Unremarkable. No cardiomegaly. No pericardial effusion. Diaphragm: Moderate-sized hiatal hernia. ABDOMEN AND PELVIS: Liver: No mass. Gallbladder and bile ducts: Unremarkable. No calcified stones. No ductal dilation. Pancreas: Unremarkable. No mass. No ductal dilation. Spleen: Unremarkable. No splenomegaly. Adrenal glands: Unremarkable. No mass. Kidneys and ureters: Unremarkable. No solid mass. No hydronephrosis. Stomach and bowel: Colonic diverticulosis, with probable minimal acute diverticulitis involving the mid sigmoid colon, where there is minimal wall thickening and adjacent fat stranding. No perforation or abscess. Appendix: No evidence of appendicitis. Intraperitoneal space: Unremarkable. No free air. No significant fluid collection. Urinary bladder: Unremarkable. No mass. Reproductive: Unremarkable as visualized. Lymph nodes: Unremarkable. No enlarged lymph nodes. Bones/joints: Unremarkable. No acute fracture. Soft tissues: Unremarkable. IMPRESSION: 1. No acute thoracic abnormality. 2. Colonic diverticulosis, with probable minimal acute diverticulitis involving the mid sigmoid colon, where there is minimal wall thickening and adjacent fat stranding. No perforation or abscess. 3. Other (less critical/noncritical/incidental) findings as above; please refer to the body of report for further details. Labs 07/12/23 18:42 07/12/23 18:42 Labs: Laboratory Results - last 24 hr 07/12/23 07/12/23 18:42 21:18 WBC 9.15 RBC 4.67 Hgb 13.6 Hct 42.1 MCV 90 MCH 29.1 MCHC 32.3 RDW 13.3 Plt Count 337 MPV 9.2 Immature Gran % 0.3 Neutrophils % 50.0 Lymphocytes % 38.8 Monocytes % 7.5 Eosinophils % 2.6 Basophils % 0.8 Nucleated RBC % 0.0 Absolute Neutrophils 4.57 Absolute Lymphocytes 3.55 H Absolute Monocytes 0.69 Absolute Eosinophils 0.24 Absolute Basophils 0.07 Sodium 142 Potassium 3.9 Chloride 105 Carbon Dioxide 26.5 Anion Gap 10.5 BUN 16 Creatinine 0.9 Est GFR (CKD-EPI 2020) 64.63 Glucose 127 H Calcium 9.3 Magnesium 2.2 Total Bilirubin 0.3 AST 22 ALT 26 Alkaline Phosphatase 83 Troponin I < 50 239 H* Total Protein 7.5 Albumin 3.7 Lipase 18 Last Vital Signs Temp 36.4 C 07/12/23 18:11 Pulse 75 07/13/23 01:16 Resp 14 07/13/23 01:20 BP 186/64 H 07/13/23 01:16 Pulse Ox 92 07/13/23 01:20 Time Spent Time spent with Patient: >75 minutes Time was spent: preparing to see the patient(eg.review tests), obtaining and/or reviewing separately otained hiistory, ordering medications,tests, procedures, referring, communicating with other health laboratory animal care veterinarian, indepentently interpreting results and care coordination
[2023-07-13 03:48] LABS: NT-proBNP 597 pg/mL (<300)
[2023-07-13] MEDS: Metoprolol 25 MG TAB PO (04:20)
[2023-07-13 04:41] LABS: PTT Activated 89.4 sec (23.6-32.8)
[2023-07-13] MEDS: Levothyroxine 75 MCG TAB PO (06:10)
[2023-07-13 06:24] LABS: HCT 38.9 % (36.0-46.0); HGB 12.5 g/dL (11.2-15.7); MCHC 32.1 % (32.0-36.0); MCV 90 fL (80-95); MPV 8.8 fL (8.0-11.0); Platelet Count 293 10^3/uL (130-400); RBC 4.31 10^6/uL (3.93-5.22); RDW 13.3 % (11.7-14.6); RDW-SD 44.7 fL; WBC 10.03 10^3/uL (4.4-10.8)
[2023-07-13 06:56] LABS: ALT 21 U/L (14-59); AST 19 U/L (15-37); Albumin 3.3 g/dL (3.4-5.0); Alkaline Phosphatase 74 U/L (46-116); Anion Gap 7.9 mmol/L (3-11); BUN 13 mg/dL (7-18); Bilirubin, Total 0.3 mg/dL (0.2-1.0); CO2 29.1 mmol/L (21.0-32.0); CREATININE 0.9 mg/dL (0.55-1.02); Calcium 8.7 mg/dL (8.5-10.1); Calculated LDL 83 mg/dL (<100); Chloride 108 mmol/L (98-107); Cholesterol 160 mg/dL (<200); Estimated GFR 64.63 (mL/min/1.73m2); Glucose 116 mg/dL (74-106); HDL Cholesterol 62 mg/dL (40-60); Potassium 4.4 mmol/L (3.5-5.1); Sodium 145 mmol/L (136-145); TSH 4.73 uIU/Ml (0.36-3.74); Total Protein 6.5 g/dL (6.4-8.2); Triglyceride 77 mg/dL (<150); Troponin I 368 ng/L (< or =60)
[2023-07-13] MEDS: Aspirin 81 MG CHEW PO (08:44)
[2023-07-13] MEDS: Losartan 50 MG TAB 100 MG PO (08:44)
[2023-07-13] MEDS: Clopidogrel 75 MG TAB PO (08:44)
--- NOTE | 2023-07-13 11:15 | RT.EKG_ITS ---
APPROVED REPORT Exam: Resting ECG Reason for Exam: MN, CP Patient Location: I HR:61 bpm ECG Measurements Heart Rate 61 AXIS NE 186 P 23 QRSd 83 QRS -43 QT 448 T 16 QTc 452 Conclusion Sinus rhythm...normal P axis, V-rate 50- 99 Ventricular premature complex...V complex w/ short R-R interval Left anterior fascicular block...axis(240,-40), init forces inf Abnormal R-wave progression, late transition...QRS area<0 in V5/V6
[2023-07-13 11:35] LABS: PTT Activated 62.4 sec (23.6-32.8)
[2023-07-13 11:40] LABS: Troponin I 281 ng/L (< or =60)
--- NOTE | 2023-07-13 11:40 | W.EVENT ---
Date of service: 07/13/23 Time of Service: 11:41 Event Note: CTSP re: recurrent CP. 05/11 just slight but had been pain free prior to transfer to ICU from the E.D. She says that when she came to the E.D. last night her CP was horrendous. Pain was relieved by NTG SL last night but she also had a syncopal spell w/ bradycardia associated w/ her NTG. We will recheck her EKG, consider NTG drip which we can titrate to her BP and her CP. Repeat troponins are coming down. Now at 281 from peak of 368. BP is high at 186/70, alert and oriented, no diaphoresis and no dyspnea. lungs clear, heart RRR, no murmur. BP elevated at 176/66, HR in 60's NTG will be started. EKG repeated and showed no acute ST-T changes. POCUS echo was done. No RWMA, normal LV systolic function. Time Spent with Patient Time spent in critical care(minutes): 45 Time Spent Included: Performing procedures not included in c.c time, Coordination of care, Documenting critically ill care, Discussing critically ill care with other medical staff and Discussing Hx and/or treatment with family
[2023-07-13] MEDS: nitroGLYcerin in D5W 50 MG/250 ML BTL IV (11:56)
[2023-07-13] MEDS: Normal Saline Flush 10 ML SYR IVP ×2 (11:58→12:47)
--- NOTE | 2023-07-13 12:16 | W.POCUS ---
Pocus Exam Limited Cardiac Exam DATE OF EXAM: 07/13/23 TIME OF EXAM: 11:51 PROVIDER THAT PERFORMED THE STUDY: Nathan Norman IS THIS A REPEAT EXAM DURING THIS ENCOUNTER: no REASON FOR EXAM: ID VISUALIZED STRUCTURES: four chambers, aortic valve, Interventricular septum and IVC VIEW OBTAINED: Apical 4-Chamber and Subxiphoid PERTINENT FINDINGS/IMPRESSION: IVC inspiratory collapsability; No LV dysfunction, No pericardial effusion, No plethoric IVC, No RV dilation and No RV dysfunction INCIDENTAL FINDINGS: LVH, normal LV size and normal systolic function w/ no RWMA Exam complete
[2023-07-13] MEDS: Acetaminophen 325 MG TAB PO (13:31)
--- NOTE | 2023-07-13 13:52 | PHA.REVIEW2 ---
Pharmacy Admission Review Admission Clinical Review Admission Pharmacy Review: Diverticulitis large intestine (Acute) Junctional bradycardia (Acute) Non-ST elevation [place] (NSTEMI) (Acute) Penicillins Allergy (Severe, Verified 07/12/23 18:17) THROAT SWELLS Resuscitation Status Full Code Height 5 ft Weight 95.3 kg Comments Comments/Follow Ups: Patient accepted for transfer to [facility] [place], waiting on bed. Pharmacy Admission Review Renal Dosing Renal Dosing: BUN 13 mg/dL (7-18) 07/13/23 06:13 Creatinine 0.9 mg/dL (0.55-1.02) 07/13/23 06:13 Medications needing adjustments: Reviewed (CrCl 46.33 mL/min) List of meds needing interventions: Current medications are okay Anticoagulation Anticoagulation: Hgb 12.5 g/dL (11.2-15.7) 07/13/23 06:13 Hct 38.9 % (36.0-46.0) 07/13/23 06:13 Plt Count 293 10^3/uL (130-400) 07/13/23 06:13 Creatinine 0.9 mg/dL (0.55-1.02) 07/13/23 06:13 Therapeutic Anticoagulation: Reviewed Medications: Heparin (infusion for NSTEMI, day 1) Relevant Labs Relevant Labs: Sodium 145 mmol/L (136-145) 07/13/23 06:13 Potassium 4.4 mmol/L (3.5-5.1) 07/13/23 06:13 Chloride 108 mmol/L (98-107) H 07/13/23 06:13 Magnesium 2.2 mg/dL (1.8-2.4) 07/12/23 18:42 Electrolytes, C-Reactive P, ESR: Reviewed (glucose 116) Cardiac Review Cardiac Review: Troponin I 281 ng/L (< or =60) H* 07/13/23 10:45 NT-Pro-B Natriuret Pep 597 pg/mL (<300) H 07/13/23 03:18 Blood Pressure 168/52 1123 Blood Pressure 164/49 1031 Blood Pressure 172/47 1017 Blood Pressure 172/48 1007 Blood Pressure 175/46 0945 Blood Pressure 188/50 0931 Blood Pressure 173/49 0916 Blood Pressure 164/34 0901 Blood Pressure 162/47 0846 Blood Pressure 145/59 0831 Blood Pressure 141/45 0816 BP, HR, EF%: Reviewed (BP 186/70 and HR 58, troponin increased from 239 yesterday to 368 today at 0613. Repeat lab at 1045 showed decrease to 281.) QTc Review QTc: Reviewed (446 from 07/12/23) IV to PO Switch IV Medications: Reviewed (Heparin and nitroglycerin infusion) Home Meds Home Med List reviewed: Intervened Relevent Home Meds Not ordered & why?: Ondansetron (PRN) and sumatriptan (PRN) Patient has order for Patient's Own rabeprazole. Called nursing to see if this could be brought in for patient. Waiting to hear back. Current Meds Current Medication Order Review: Reviewed Comments Comments/Follow Ups: Patient accepted for transfer to [facility] [place], waiting on bed.
--- NOTE | 2023-07-13 16:03 | W.PM.DS.N ---
Date of service: 07/13/23 Time of Service: 16:20 DS: Diagnosis Discharge Diagnosis (1) Non-ST elevation OR (NSTEMI): Status: Acute Asessment and Plan: Patient developed acute chest pain associated with nausea and vomiting with severe pain rating into her back occurring about 30 minutes prior to arrival. Patient presented emergency department at 1811. Workup included serial ECGs which demonstrated normal sinus rhythm with no acute ST elevation or depression but demonstrated left anterior fascicular block. Heart rate on arrival was 89 bpm. Subsequent ECG 4 hours after arrival continue showed normal sinus rhythm rate of 84 bpm left anterior fascicular block but no acute ST elevation or depression. ECG the next morning of 07/13/2023 again showed normal sinus rhythm but heart rate is now 60 bpm and again without acute ST elevation or depression. Again she has a left anterior fascicular block. Treatment included dual antiplatelet therapy with loading dose of Plavix and aspirin and then subsequently daily Plavix 75 mg and aspirin 81 mg along with unfractionated systemic heparin intravenously and when she had some further chest discomfort on the morning following her admission she was started on nitroglycerin drip and she has been pain-free since. Nitroglycerin drip was increased to 10 mcg/min and is remained there throughout the day with control of her chest symptoms. [facility] cardiology service was contacted by our ED provider on the evening of 07/12/2023 and the patient was tentatively accepted to the service of Dr. Felix pending bed availability. Late in the afternoon on 07/13/2023 [facility] called indicating that they had a bed available and the patient was transferred in improved and stable condition patient is hemodynamically stable and pain-free. [facility] called prior to the patient receiving any Cipro Flagyl for her diverticulitis. Further evaluation can be performed by GI services at [facility]. On the morning of 07/13/2023 critical care echocardiogram was performed patient was found to have normal LV and RV function. There is no significant mitral regurgitation. She does have mild LVH. Bedside [id number] ultrasound was limited by patient's body habitus as well as limited windows due to external pacemaker pads. Apical four-chamber window and subxiphoid window were obtained but parasternal long axis and short axis were not obtained. Short axis view was attempted from the subxiphoid window. (2) Junctional bradycardia: Status: Acute Asessment and Plan: Patient had episode of junctional bradycardia while in the emergency department shortly after she dropped her blood pressure with sublingual nitroglycerin became vagal. She responded to low-dose of atropine 0.25 mg IV. She has had no further bradycardia issues since admission. The admitting gang knife fish chopper did put her on low-dose metoprolol for ischemia however no further doses of metoprolol were given since the patient's heart rate has been well-controlled in the 60s. (3) Diverticulitis large intestine: Status: Acute Asessment and Plan: Patient reports she has had several months of diarrhea and crampy abdominal pains. She reportedly has had previous colonoscopies performed at [facility]. Less than as part of her workup she had CT scan of the chest abdomen pelvis and was found to have colonic diverticulosis with minimal acute diverticulitis involving the mid sigmoid colon with minimal wall thickening and adjacent fat stranding but no perforation or abscess. CBC was checked on admission found to be normal at 9100 repeat level remained normal at 10,000. She was afebrile. She is symptomatic of some mild left lower quadrant tenderness but without evidence of rebound tenderness or guarding. Initially no antibiotics were ordered however I did order a dose x 1 dose of Flagyl and ciprofloxacin on the afternoon of 07/13/2023. I recommend that the cardiology service have her GI specialist see her and review her current CT findings and compared to previous studies at [facility] to make a determination of whether or not she needs to remain on antibiotics (4) Essential hypertension: Status: Chronic (5) Hypothyroidism: Status: Chronic Asessment and Plan: TSH found to be mildly elevated at 4.73. Patient is currently on levothyroxine 75 mcg daily. Further adjustment can be made as an outpatient (6) GERD (gastroesophageal reflux disease): Status: Chronic Asessment and Plan: Patient was treated with IV Pepcid Discharge Plan Disposition Patient Disposition: Transfer-Acute Inpatient Care Specific Acute Inpt Facility: [facility] Condition: Serious Discharge Details Reason For Visit: Non-stemi,brachycardia w/ junctional rhythm sympto Admit Date/Time: 07/13/23 02:42 Admit Provider: Riley Samuel Attending Provider: Riley Samuel Primary Care Provider: Dinora Fan Home Meds and New Rx's Prescriptions: No Action losartan 100 mg tablet 100 mg PO DAILY Qty: 90 3RF sumatriptan succinate 100 mg tablet See Rx Instructions PO .COMPLEX Qty: 20 4RF Rx Instructions: take 1 tab at onset of headache; if no relief, may repeat 1 tab after at least 2 hrs; max = 2 tabs/24 hrs PO levothyroxine 75 mcg capsule 75 mcg PO DAILY Qty: 30 0RF Rx Instructions: take one capsule daily rabeprazole 20 mg tablet,delayed release (DR/EC) 20 mg PO BID Qty: 180 3RF Rx Instructions: take one tablet twice a day ondansetron 4 mg tablet,disintegrating 4 mg PO Q6H PRN (Reason: nausea and vomiting) Qty: 10 0RF Discharge Instructions Instructions: Heart Attack (DC), Diverticulitis (DC), Diverticulitis Diet (DC) Activity:: bedrest Equipment/Supplies:: No Equipment Needed Diet:: Low Sodium DS: Summary Time Spent with Patient providing and/or coordinating discharge services: Greater than 30 minutes Status at Discharge Functional status at discharge: independent ambulation Overall status at discharge: patient is not back to baseline Mental Status: mental status grossly normal Speech and Movement: speech and movement normal Mood: congruent mood Affect: normal affect Quality:SDOH Health Related Social Needs: No Data to Display Exam Narrative Exam Narrative: General: Patient appears appropriate for age, slightly anxious but in no acute distress. Alert and oriented x 3. She is morbidly obese. HEENT: Normocephalic, eyes with pupils equal and reactive to light symmetrically, extraocular movement intact and sclera anicteric. Oropharynx with moist mucosa with patient being edentulous. Neck: Supple without JVD. Back: Kyphotic without CVA tenderness. Skin: Normal color, moist especially over the back and warm. Lungs: Fair aeration with occasional expiratory crackles in the bases clearing with deep inspiration. No focalizing rales or rhonchi. Breast: Exam deferred. Heart: Regular rate and rhythm with S2 gallop intermittently but no murmurs or rubs. Abdomen: Obese contour, soft and nontender to palpation with no palpable hepatosplenomegaly. Negative Webster sign. Bowel sounds positive in all quadrants. No guarding or rebound especially over left lower abdomen. Genitalia/rectal: Exam deferred. Extremities: Nonpitting edema lower extremities with no cyanosis or clubbing. Good capillary refill. Neuro: Cranial nerves II through XII grossly intact. No focal motor deficits and no tremor. Psych: Slightly anxious with normal mood. No normal thought processes. Remote and recent memory intact. Psych Mental Status: mental status grossly normal Speech and Movement: speech and movement normal Mood: congruent mood Affect: normal affect DS: Data Vitals/I&O Vitals and I&O: Vital Signs Temperature 36.8 C 07/13/23 11:23 Temperature Source Temporal Artery Scan 07/13/23 11:23 Pulse 64 07/13/23 14:46 Pulse 65 07/13/23 14:46 Respiratory Rate 13 07/13/23 14:46 Respiratory Effort Short of Breath 07/13/23 11:23 Respiratory Pattern Normal 07/13/23 11:23 Blood Pressure 162/69 H 07/13/23 14:46 Blood Pressure Mean 95 07/13/23 14:46 Blood Pressure Position Supine 07/13/23 11:23 Pulse Oximetry 94 07/13/23 14:31 Oxygen Delivery Method Room Air 07/13/23 11:23 Oxygen Flow Rate 0 07/13/23 11:23 Pain Level 3 07/13/23 11:23 Intake & Output 07/12/23 07/13/23 07/13/23 23:59 11:59 23:59 Intake Total 64.167 / 69.247 5.08 / 69.247 Output Total 550 / 800 250 / 800 Balance -485.833 / -730.753 -244.92 / -730.753 Weight 92.533 kg 95.3 kg Intake: IV 64.167 / 69.247 5.08 / 69.247 Output: Urine 550 / 800 250 / 800 Other: Urine Color Yellow Urine Appearance Clear Data Completed and Pending Labs on day of discharge: Labs from last 24 hours 07/13/23 07/13/23 07/13/23 10:45 06:13 06:13 WBC 10.03 RBC 4.31 Hgb 12.5 Hct 38.9 MCV 90 MCH 29.0 MCHC 32.1 RDW 13.3 Plt Count 293 MPV 8.8 Immature Gran % Neutrophils % Lymphocytes % Monocytes % Eosinophils % Basophils % Nucleated RBC % Absolute Neutrophils Absolute Lymphocytes Absolute Monocytes Absolute Eosinophils Absolute Basophils APTT 62.4 H Sodium 145 Potassium 4.4 Chloride 108 H Carbon Dioxide 29.1 Anion Gap 7.9 BUN 13 Creatinine 0.9 Est GFR (CKD-EPI 2020) 64.63 Glucose 116 H Calcium 8.7 Magnesium Total Bilirubin 0.3 AST 19 ALT 21 Alkaline Phosphatase 74 Troponin I 281 H* 368 H* Cancelled NT-Pro-B Natriuret Pep Total Protein 6.5 Albumin 3.3 L Triglycerides 77 Total Cholesterol 160 LDL Cholesterol, Calc 83 HDL Cholesterol 62 Lipase TSH 4.73 H 07/13/23 07/13/23 07/13/23 05:35 04:20 03:18 WBC RBC Hgb Hct MCV MCH MCHC RDW Plt Count MPV Immature Gran % Neutrophils % Lymphocytes % Monocytes % Eosinophils % Basophils % Nucleated RBC % Absolute Neutrophils Absolute Lymphocytes Absolute Monocytes Absolute Eosinophils Absolute Basophils APTT 89.4 H* Sodium Cancelled Potassium Cancelled Chloride Cancelled Carbon Dioxide Cancelled Anion Gap Cancelled BUN Cancelled Creatinine Cancelled Est GFR (CKD-EPI 2020) Cancelled Glucose Cancelled Calcium Cancelled Magnesium Total Bilirubin Cancelled AST Cancelled ALT Cancelled Alkaline Phosphatase Cancelled Troponin I NT-Pro-B Natriuret Pep 597 H Total Protein Cancelled Albumin Cancelled Triglycerides Total Cholesterol LDL Cholesterol, Calc HDL Cholesterol Lipase TSH 07/12/23 07/12/23 21:18 18:42 WBC 9.15 RBC 4.67 Hgb 13.6 Hct 42.1 MCV 90 MCH 29.1 MCHC 32.3 RDW 13.3 Plt Count 337 MPV 9.2 Immature Gran % 0.3 Neutrophils % 50.0 Lymphocytes % 38.8 Monocytes % 7.5 Eosinophils % 2.6 Basophils % 0.8 Nucleated RBC % 0.0 Absolute Neutrophils 4.57 Absolute Lymphocytes 3.55 H Absolute Monocytes 0.69 Absolute Eosinophils 0.24 Absolute Basophils 0.07 APTT Sodium 142 Potassium 3.9 Chloride 105 Carbon Dioxide 26.5 Anion Gap 10.5 BUN 16 Creatinine 0.9 Est GFR (CKD-EPI 2020) 64.63 Glucose 127 H Calcium 9.3 Magnesium 2.2 Total Bilirubin 0.3 AST 22 ALT 26 Alkaline Phosphatase 83 Troponin I 239 H* < 50 NT-Pro-B Natriuret Pep Total Protein 7.5 Albumin 3.7 Triglycerides Total Cholesterol LDL Cholesterol, Calc HDL Cholesterol Lipase 18 TSH PFSH All Active Problems (Updated 07/13/23 @ 04:26 by Riley Samuel) Diverticulitis large intestine (Acute) Junctional bradycardia (Acute) Non-ST elevation OR (NSTEMI) (Acute) Tinnitus of left ear (Acute) Sensorineural hearing loss (SNHL) of both ears (Acute) Obesity, Class III, BMI 40-49.9 (morbid obesity) (Acute) Essential hypertension (Chronic) Sliding hiatal hernia (Acute ~01/2018) [facility] Periodic limb movement disorder (Acute 08/12/15) Obstructive sleep apnea (Chronic 08/12/15) 2018 pt declines fup Hypothyroidism (Chronic) Depressive disorder (Chronic 07/17/07) GERD (gastroesophageal reflux disease) (Chronic) Migraine headache (Chronic) Medical History (Updated 07/13/23 @ 04:26 by Riley Samuel) Esophageal foreign body s/p endoscopy 08/2022; managing with dietary change. Neck fullness (11/25/13) right scalene fat pad/ eval. [facility] Low back pain radiating to both legs (12/09/14) mri : left neural foraminal narrowing L5S1/apparent syrinx of lower thoracic cord- no resp. PT/ :no spinal stenosi/not sx Surgical History Hx of esophagogastroduodenoscopy S/P cataract extraction S/P rotator cuff repair S/P shoulder surgery History of tooth extraction History of total hysterectomy with removal of both tubes and ovaries Family History (Updated 11/15/22 @ 14:39 by Shanna Roldan) Mother , age 72 Essential hypertension Breast cancer Sister , age 53 Breast cancer Lung cancer Sister , age 74 Liver cancer Lung cancer Father , age 72 Lung cancer Brother Diabetes Essential hypertension Heart disease Maternal Grandfather , age 72 Lung cancer Pancreatic cancer Paternal Grandfather , age 42 Heart disease Maternal Grandmother , age 81 Diabetes Essential hypertension Stroke Breast cancer Paternal Grandmother No problems noted. Son No problems noted. Daughter No problems noted. Daughter No problems noted. 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 [employer] Pets and animals: No Sexually active: No Do you think of yourself as: straight/heterosexual Current gender identity: female What is your relationship status?: How often do you talk on the phone with friends or family?: three or more times per week How often do you get together with friends or relatives?: three or more times per week How often do you attend christian or christian services?: 4 or more times per year Do you belong to any clubs or organized social groups?: yes Panel score (0-1 are the most socially isolated patients): 4 What type of physical activity do you participate in: none Frequency: does not exercise Irene/Restorationism: Hindu Special irene needs: No Seatbelt use: always Helmet use: No Drive intox or ride w/intox driver/refuse collector: No Do you feel safe at home: Yes Do you feel safe in your relationship?: Yes Additional Social history: Enjoys cake decorating, baking. Time Spent with Patient Time Spent with Patient: <45 minutes Time was spent: preparing to see the patient(eg.review tests), referring, communicating with other health care information associate, indepentently interpreting results, counseling the patient and care coordination
== END 2023-07-13 17:37 | disposition short-term general hospital (02) | DRG 281 ==
LOC: ER 07-13 02:41 → ICU 07-13 16:00
PROVIDERS: Internal Medicine; Admitting Provider Family Medicine; Emergency Provider Emergency Medicine; PCP Family Medicine; Visit Provider Family Medicine
DX: I21.4 Non-ST elevation (NSTEMI) myocardial infarction; K57.32 Diverticulitis of large intestine without perforation or abscess without bleeding; Z68.41 Body mass index [BMI] 40.0-44.9, adult; I10 Essential (primary) hypertension; E03.9 Hypothyroidism, unspecified; K21.9 Gastro-esophageal reflux disease without esophagitis; I49.8 Other specified cardiac arrhythmias; I44.4 Left anterior fascicular block; Z79.899 Other long term (current) drug therapy; E66.9 Obesity, unspecified; H90.3 Sensorineural hearing loss, bilateral; R11.2 Nausea with vomiting, unspecified; R55 Syncope and collapse
CPT/HCPCS: 00123; 71275; 80053; 80061; 83690; 85027; 93005; 93308; 96365; 96366; 96375; 99291; 74174; 83735; 83880; 84443; 84484; 85025; 85730; 93010; 99223; 99238; J0461; J1644; J2305; J2405; J3010; J3490

== ENCOUNTER 2023-11-18 02:16 | Outpatient (CLI) | payer MEDICARE, OTHER, SELFPAY ==
--- NOTE | 2023-11-18 06:45 | DI.DEXA_ITS ---
Exam(s) XR DEXA BONE DENSITY W/WO MANUEL EXAM: XR DEXA BONE DENSITY W/WO MANUEL CLINICAL HISTORY: screening for osteoporosis, menopausal disorder, n95.9 TECHNIQUE: COMPARISON: CR LUMBAR SPINE COMPLETE from 08/13/2014 FINDINGS: Lateral Spine Image: Unremarkable. No compression deformities identified. Left hip: Total T-Score: -0.6 Total Z-Score: 1.5 T- and Z-scores: There is no evidence of osteoporosis. Lumbar Spine: Total T-Score: -0.8 Total Z-Score: 1.9 T- and Z-scores: There is no evidence of osteoporosis. IMPRESSION: No evidence of osteoporosis.
== END 2023-11-18 02:36 ==
LOC: DI 02:16
PROVIDERS: PCP Family Medicine; Visit Provider Family Medicine
DX: N95.9 Unspecified menopausal and perimenopausal disorder (principal); Z13.820 Encounter for screening for osteoporosis
CPT/HCPCS: 77080

== ENCOUNTER 2024-04-24 00:49 | Emergency (ER) | payer MEDICARE, OTHER, SELFPAY ==
[2024-04-24] VITALS (29 sets, daily range): BP systolic 141–173; BP diastolic 55–96; PULSE 79–101; RESP 6–22; TEMP 36.6–36.8; O2SAT 92–98
--- NOTE | 2024-04-24 01:15 | RT.EKG_ITS ---
APPROVED REPORT Exam: Resting ECG Reason for Exam: syncope Patient Location: E HR:96 bpm ECG Measurements Heart Rate 96 AXIS AL 176 P 60 QRSd 82 QRS -53 QT 366 T 52 QTc 463 Conclusion Sinus rhythm...normal P axis, V-rate 60- 99 Left anterior fascicular block...axis(240,-40), init forces inf Consider anterior infarct...Q >30mS in V2-V5 appropriate intervals no ST segment or T wave abnormalities to suggest occlusive NE
[2024-04-24 01:54] LABS: Abs Immature Grans 0.08 10^3/uL (0.0-0.06); Absolute Basophil Count 0.03 10^3/uL (0.0-0.2); Absolute Eosinophil Count 0.08 10^3/uL (0.0-0.7); Absolute Lymphocyte Count 0.45 10^3/uL (1.2-3.4); Absolute Monocyte Count 0.51 10^3/uL (0.1-0.8); Absolute Neutrophil Count 14.29 10^3/uL (1.2-6.7); Basophils % 0.2 %; Eosinophils % 0.5 %; HCT 44.8 % (36.0-46.0); HGB 13.9 g/dL (11.2-15.7); Immature Grans % 0.5 %; Lymphocytes % 2.9 %; MCH 28.9 pg (27.0-33.0); MCV 93 fL (80-95); MPV 8.8 fL (8.0-11.0); Monocytes % 3.3 %; Neutrophils % 92.6 %; Platelet Count 280 10^3/uL (130-400); RBC 4.81 10^6/uL (3.93-5.22); RDW 13.2 % (11.7-14.6); RDW-SD 45.1 fL; WBC 15.43 10^3/uL (4.4-10.8)
[2024-04-24 01:55] LABS: Lactate 3.1 mmol/L (<or=2.0)
[2024-04-24] MEDS: ACETAMINOPHEN 1,000 MG/100 ML BAG 400 MG IVPB (01:57)
[2024-04-24] MEDS: Ondansetron 4 MG/2 ML VIAL IVP (01:57)
[2024-04-24] MEDS: Normal Saline 1,000 ML 1000 ML IV ×2 (02:09→03:38)
[2024-04-24 02:19] LABS: ALT 27 U/L (14-59); AST 15 U/L (15-37); Albumin 3.7 g/dL (3.4-5.0); Alkaline Phosphatase 89 U/L (46-116); Anion Gap 4.8 mmol/L (3-11); BUN 10 mg/dL (7-18); Bilirubin, Total 0.42 mg/dL (0.2-1.0); CO2 29.2 mmol/L (21.0-32.0); Calcium 8.7 mg/dL (8.5-10.1); Chloride 109 mmol/L (98-107); Glucose 155 mg/dL (74-106); Lipase 13 U/L (<78); Magnesium 1.9 mg/dL (1.8-2.4); Potassium 4.2 mmol/L (3.5-5.1); Sodium 143 mmol/L (136-145); TSH (W/Ref FT4) 3.95 uIU/mL (0.36-3.74); Total Protein 7.2 g/dL (6.4-8.2)
--- NOTE | 2024-04-24 02:24 | DI.CT_ITS ---
Exam(s) CT ABDOMEN PELVIS W EXAM: CT ABDOMEN PELVIS W CLINICAL HISTORY: N/V, diffuse abd tenderness. TECHNIQUE: Imaging Protocol: Axial computed tomography images with coronal and sagittal reformatted images were created and reviewed CONTRAST MATERIAL: Intravenous: Omnipaque-350 100cc Oral: None COMPARISON: CT CT ABDOMEN PELVIS W from 09/16/[address] THORAX ABD/PEL CTA from 07/12/2023 FINDINGS: VISUALIZED LUNG BASES: No nodules nor pleural effusions evident. Large hiatal hernia is again noted. ABDOMEN: GI: The stomach is not distended. The duodenal C-loop as well as all of the left upper quadrant jeju nal loops are fluid-filled and minimally prominent diameter. There is transition back to normal diam eter in the mid abdomen level. Diameter of distal small bowel loops is normal. There is some fluid in the colon. Significant part of the colon is collapsed. There are sigmoid diverticulae but withou t evidence of obvious acute diverticulitis. LIVER: There are no focal hepatic lesions evident. No dilated intrahepatic ducts. GALLBLADDER/BILIARY: Gallbladder is mildly distended but not edematous. No obvious radiopaque gallst ones. CBD is not dilated. PANCREAS: No evidence of pancreatic mass nor dilatation of the pancreatic duct. SPLEEN: Spleen is not enlarged. No obvious intrasplenic lesions. Splenic and portal veins are paten t. ADRENALS: There are no significant adrenal masses. KIDNEYS:No cysts evident. No solid renal masses. No calculi nor hydronephrosis.. ABDOMINAL AORTA: Abdominal aorta is not enlarged. LYMPH NODES:There is no retroperitoneal nor paraaortic adenopathy. ABDOMINAL WALL: No evidence of significant anterior abdominal wall nor inguinal hernia. PELVIS: GI: Appendix is not seen. There is no evidence of acute appendicitis.Sigmoid diverticulosis. No obv ious acute diverticulitis. LYMPH NODES: There is no intrapelvic nor inguinal adenopathy. REPRODUCTIVE: Uterus is surgically absent. There are no abnormal adnexal masses. No free fluid in t he pelvis. URINARY BLADDER: No calculi nor obvious masses evident OSSEOUS: No fractures and no significant osseous lesions. Multilevel degenerative disc disease in the lumbar spine. Most prominent disc space narrowing is at L5-S1 level. IMPRESSION: 1. Fluid-filled and mildly dilated duodenum and jejunal loops. Stomach is not dilated, although this patient has apparently been vomiting. Large hiatal hernia is again noted. Difficult here to differ entiate between enteritis or possible bowel obstruction. 2. Sigmoid diverticulosis without evidence of obvious acute diverticulitis. No evidence of appendici tis. 3. Previous hysterectomy. No abnormal pelvic masses. 4. There is no ascites. First read by [facility]. RADIATION DOSE DELIVERED: 772.86mGy.cm Total DLP DATA REPOSITORY: All CT scans at this facility are submitted to the National Radiology Data Registry (NRDR) Dose Index Registry (DIR) with the [employer] (ACR). RADIATION OPTIMIZATION: All CT scans at this facility use at least one of these dose optimization te chniques: automated exposure control; mA and/or kV adjustment per patient size (includes targeted exa ms where dose is matched to clinical indication); or iterative reconstruction.
[2024-04-24] MEDS: Omnipaque 350 MG/ML 100 ML BTL IJ (02:26)
[2024-04-24] MEDS: Normal Saline - Diluent 50 ML VIAL IJ (02:27)
[2024-04-24 02:41] LABS: FREE T4 0.83 ng/dL (0.76-1.46)
--- NOTE | 2024-04-24 02:58 | ED.GENADUL_ITS ---
Discharge Plan Disposition Patient Disposition: Home Condition: Good Discharge Details Clinical Impression: Vomiting, Acute diarrhea Primary Care Provider: Dinora Fan ED Provider: Karime Ibarra Home Meds and New Rx's Prescriptions: New metoclopramide HCl [Reglan] 10 mg tablet 10 mg PO Q12H PRN PRNQty: 7 0RF Continued Gaviscon 80-14.2 mg tablet,chewable 1 tab PO PRN PRN All Day Allergy (cetirizine) 10 mg capsule 10 mg PO DAILY PRN sumatriptan succinate 100 mg tablet See Rx Instructions PO .COMPLEX Qty: 20 4RF Rx Instructions: take 1 tab at onset of headache; if no relief, may repeat 1 tab after at least 2 hrs; max = 2 tabs/24 hrs PO amlodipine 5 mg tablet 5 mg PO DAILY Qty: 90 3RF levothyroxine 75 mcg capsule 75 mcg PO DAILY Qty: 90 3RF Rx Instructions: take one capsule daily losartan 100 mg tablet 100 mg PO DAILY Qty: 90 3RF rabeprazole 20 mg tablet,delayed release (DR/EC) 20 mg PO BID Qty: 180 3RF Rx Instructions: take one tablet twice a day Discharge Instructions Instructions: Diarrhea, Adult ED, Nausea and Vomiting, Adult ED Additional Instructions: Reglan up to every 12 hours as needed for vomiting. Call your primary care doctor this morning to schedule an appointment to be seen within the next 48 hours to followup on your visit here. Return to the emergency department immediately if your symptoms return or worsen, including if you are unable to keep down fluids, feel like you are going to pass out, have worsening abdominal pain, have blood in your vomit or stool, develop chest pain or shortness of breath, or if you have any other concerns. Referrals: Dinora Fan MD [Primary Care Provider] - [facility] General Mode of arrival: EMS . Date/Time Provider Initiated Documentation: 04/24/24 01:07 . Limitations to Documentation: no limitations . Information obtained by: patient, family and EMS . HPI Narrative: 79yo F with hx obesity, HTN, ARTHUR, hypothyroid, GERD with chronic vomiting, presenting for acute nausea, vomiting, and diarrhea. Around 5pm this evening suddenly felt unwell, vomited too many times to count, nonbloody non bilious. Has also has sever episodes of diarrhea (also non bloody); felt lightheaded while having a bowel movement and nearly lost consciousness. Did not fall or strike her head. She reports this often happens when she has diarrhea. Has had diffuse abdominal pain starting around the same time. She is otherwise in her usual state of health with no fevers, chills, rash, dysuria, hematuria, chest pain, shortness of breath, or other concerns. Related Data Home Medications ?Medication ?Instructions ?Recorded ?Confirmed Al hyd-Mg tr-alg ac-sod bicarb 80 1 tab PO PRN PRN 07/17/23 04/24/24 mg-14.2 mg chewable tablet (Gaviscon) cetirizine 10 mg capsule (All Day 10 mg PO DAILY PRN 07/17/23 04/24/24 Allergy (cetirizine)) sumatriptan succinate 100 mg tablet See Rx Instructions PO .COMPLEX 09/04/23 04/24/24 #20 tabs amlodipine 5 mg tablet 5 mg PO DAILY #90 tabs 09/06/23 04/24/24 levothyroxine 75 mcg capsule 75 mcg PO DAILY #90 caps 09/06/23 04/24/24 losartan 100 mg tablet 100 mg PO DAILY #90 tabs 09/06/23 04/24/24 rabeprazole 20 mg tablet,delayed 20 mg PO BID #180 tabs 10/17/23 04/24/24 release metoclopramide HCl 10 mg tablet 10 mg PO Q12H PRN PRN #7 tabs 04/24/24 (Reglan) Previous Rx's ?Medication ?Instructions ?Recorded sumatriptan succinate 100 mg tablet See Rx Instructions PO .COMPLEX 09/04/23 #20 tabs amlodipine 5 mg tablet 5 mg PO DAILY #90 tabs 09/06/23 levothyroxine 75 mcg capsule 75 mcg PO DAILY #90 caps 09/06/23 losartan 100 mg tablet 100 mg PO DAILY #90 tabs 09/06/23 rabeprazole 20 mg tablet,delayed 20 mg PO BID #180 tabs 10/17/23 release metoclopramide HCl 10 mg tablet 10 mg PO Q12H PRN PRN #7 tabs 04/24/24 (Reglan) Allergies Allergy/AdvReac Type Severity Reaction Status Date / Time Penicillins Allergy Severe THROAT Verified 02/07/24 10:44 SWELLS General Stated Complaint: Nausea/Vomit/Diar LES: 3 Review of Systems Narrative: see HPI Exam Narrative Exam Narrative: General: Alert, non-toxic Head: Normocephalic, atraumatic Neck: Trachea midline, ?Neck supple. ENT: ?MMM.? Cardiac: ?RRR, no murmurs appreciated Resp: No respiratory distress. CTAB. Abd: ?Soft, non-distended, diffusely TTP with no rebound or guarding Extremities: ?No deformities.? Neurologic: GCS 15. ? Moves all extremities freely against gravity Course Vital Signs Vital signs: Vital Signs Temperature 36.8 C 04/24/24 00:50 Pulse 101 H 04/24/24 00:50 Respiratory Rate 18 04/24/24 00:50 Blood Pressure 167/83 H 04/24/24 00:50 Pulse Oximetry 96 04/24/24 00:50 Temperature 36.8 C 04/24/24 00:56 Pulse 93 H 04/24/24 02:32 Respiratory Rate 6 L 04/24/24 02:32 Blood Pressure 167/55 H 04/24/24 02:01 Blood Pressure Position Supine 04/24/24 00:56 Pulse Oximetry 98 04/24/24 02:32 Oxygen Delivery Method Room Air 04/24/24 00:56 Oxygen Flow Rate 0 04/24/24 00:50 Pain Level 0 04/24/24 00:56 Lab/Test Results Lab/Test Results: Laboratory Tests Range/Units 04/24/24 01:50 WBC (4.4-10.8) 10^3/uL 15.43 H RBC (3.93-5.22) 10^6/uL 4.81 Hgb (11.2-15.7) g/dL 13.9 Hct (36.0-46.0) % 44.8 MCV (80-95) fL 93 MCH (27.0-33.0) pg 28.9 MCHC (32.0-36.0) % 31.0 L RDW (11.7-14.6) % 13.2 Plt Count (130-400) 10^3/uL 280 MPV (8.0-11.0) fL 8.8 Immature Gran % % 0.5 Neutrophils % % 92.6 Lymphocytes % % 2.9 Monocytes % % 3.3 Eosinophils % % 0.5 Basophils % % 0.2 Nucleated RBC % (0.0-0.3) % 0.0 Absolute Neutrophils (1.2-6.7) 10^3/uL 14.29 H Absolute Lymphocytes (1.2-3.4) 10^3/uL 0.45 L Absolute Monocytes (0.1-0.8) 10^3/uL 0.51 Absolute Eosinophils (0.0-0.7) 10^3/uL 0.08 Absolute Basophils (0.0-0.2) 10^3/uL 0.03 VBG Lactate (<or=2.0) mmol/L 3.1 H* Sodium (136-145) mmol/L 143 Potassium (3.5-5.1) mmol/L 4.2 Chloride (98-107) mmol/L 109 H Carbon Dioxide (21.0-32.0) mmol/L 29.2 Anion Gap (3-11) mmol/L 4.8 BUN (7-18) mg/dL 10 Creatinine (0.55-1.02) mg/dL 1.0 Est GFR (CKD-EPI 2020) (mL/min/1.73m2) 56.60 Glucose (74-106) mg/dL 155 H Calcium (8.5-10.1) mg/dL 8.7 Magnesium (1.8-2.4) mg/dL 1.9 Total Bilirubin (0.2-1.0) mg/dL 0.42 AST (15-37) U/L 15 ALT (14-59) U/L 27 Alkaline Phosphatase (46-116) U/L 89 Total Protein (6.4-8.2) g/dL 7.2 Albumin (3.4-5.0) g/dL 3.7 Lipase (<78) U/L 13 TSH (0.36-3.74) uIU/mL 3.95 H Free T4 (0.76-1.46) ng/dL 0.83 Medical Decision Making 79yo F with hx obesity, HTN, ARTHUR, hypothyroid, GERD with chronic vomiting, presenting for acute nausea, vomiting, and diarrhea. After several episodes of vomiting and diarrhea, felt lightheaded while having a bowel movement and nearly lost consciousness. Did not fall or strike her head. She reports this often happens when she has diarrhea. No chest pain or shortness of breath at any point. Hypertensive and slightly tachcyardiac to low 100's on arrival, vital si gns otherwise reassuring. Abdomen diffusely tender but not peritoneal. No pain out of proportion to suggest mesenteric ischemia. Not overtly septic and aside from N/V/D no infectious symptoms. EKG sinus tachycardia, appropriate intervals, no ST segment or T wave abnormalities to suggest occlusive PA. Labs reviewed as below, CBC with leukocytosis to 15,CMP reassuring with no actionable abnormalities, Mg normal, TSH high with normal T4, troponins 13, 13 (would not further pursue ACS), lactate elevated at 3.1. Given 1L IVFB, repeat lactate improved to 2.1. CT independently reviewed, no clear obstruction or free fluid on my view, radiology read below. Continues nausea and dry heaving after zofran; will try reglan. Lactate after additional IVFB normalized at 1.8 On reassessment patient reports feeling much better. Repeat abdominal reassuring, no significant tenderness. PO challenged and tolerated well. Ambulated steadily without lightheadedness. Given advanced age, with le ukocytosis, initial elevated HR, and elevated lactate consider observation or admission, however currently no beds at [facility] and transferring as far away as [place] currently with nearer hospitals also at capacity. Discussed with patient and family and with her improvement in symptoms they would prefer to discharge home which is not unreasonable. She is tolerating PO, ambulating safely, has a non-tender abdomen, and is well appearing. Discharge home with anti emetics and strict return precautions, which is what patient and family would prefer, is a reasonable plan. The importance of returning to the ED immediately for recurrent/worsening/new symptoms was stressed. Discharged home; discharge instructions and return precautions were reviewed with patient and family who verbalized understanding. All questions were answered and they are in full agreement with the plan. Imaging Data Radiologic Study: Imaging: CT Scan Radiologist's impression: IMPRESSION: 1. Fluid-filled small and large bowel, suggesting mild inflammation. 2. Additional findings as above. Lab Data Lab results reviewed: Yes I reviewed the patient's lab results. Labs: Laboratory Tests Range/Units 04/24/24 01:50 WBC (4.4-10.8) 10^3/uL 15.43 H RBC (3.93-5.22) 10^6/uL 4.81 Hgb (11.2-15.7) g/dL 13.9 Hct (36.0-46.0) % 44.8 MCV (80-95) fL 93 MCH (27.0-33.0) pg 28.9 MCHC (32.0-36.0) % 31.0 L RDW (11.7-14.6) % 13.2 Plt Count (130-400) 10^3/uL 280 MPV (8.0-11.0) fL 8.8 Immature Gran % % 0.5 Neutrophils % % 92.6 Lymphocytes % % 2.9 Monocytes % % 3.3 Eosinophils % % 0.5 Basophils % % 0.2 Nucleated RBC % (0.0-0.3) % 0.0 Absolute Neutrophils (1.2-6.7) 10^3/uL 14.29 H Absolute Lymphocytes (1.2-3.4) 10^3/uL 0.45 L Absolute Monocytes (0.1-0.8) 10^3/uL 0.51 Absolute Eosinophils (0.0-0.7) 10^3/uL 0.08 Absolute Basophils (0.0-0.2) 10^3/uL 0.03 VBG Lactate (<or=2.0) mmol/L 3.1 H* Sodium (136-145) mmol/L 143 Potassium (3.5-5.1) mmol/L 4.2 Chloride (98-107) mmol/L 109 H Carbon Dioxide (21.0-32.0) mmol/L 29.2 Anion Gap (3-11) mmol/L 4.8 BUN (7-18) mg/dL 10 Creatinine (0.55-1.02) mg/dL 1.0 Est GFR (CKD-EPI 2020) (mL/min/1.73m2) 56.60 Glucose (74-106) mg/dL 155 H Calcium (8.5-10.1) mg/dL 8.7 Magnesium (1.8-2.4) mg/dL 1.9 Total Bilirubin (0.2-1.0) mg/dL 0.42 AST (15-37) U/L 15 ALT (14-59) U/L 27 Alkaline Phosphatase (46-116) U/L 89 Total Protein (6.4-8.2) g/dL 7.2 Albumin (3.4-5.0) g/dL 3.7 Lipase (<78) U/L 13 TSH (0.36-3.74) uIU/mL 3.95 H Free T4 (0.76-1.46) ng/dL 0.83 Quality:SDOH Health Related Social Needs: No Data to Display PFSH All Active Problems (Updated 04/24/24 @ 06:07 by Karime Ibarra MD) Acute diarrhea (Acute) Vomiting (Acute) Class 2 obesity due to excess calories with body mass index (BMI) of 39.0 to 39.9 in adult (Acute) Persistent recurrent vomiting (Acute) Tinnitus of left ear (Acute) Sensorineural hearing loss (SNHL) of both ears (Acute) Essential hypertension (Chronic) Sliding hiatal hernia (Acute ~01/2018) [facility] Periodic limb movement disorder (Acute 08/12/15) Obstructive sleep apnea (Chronic 08/12/15) 2018 pt declines fup Hypothyroidism (Chronic) Depressive disorder (Chronic 07/17/07) GERD (gastroesophageal reflux disease) (Chronic) extensive evaluation at [facility] in 2019 Migraine headache (Chronic) Medical History (Updated 04/24/24 @ 06:07 by Karime Ibarra MD) Non-ST elevation PA (NSTEMI) (07/2023) clean coronary arteries on cath at [facility]; felt to be due to strain due to elev SBP Esophageal foreign body s/p endoscopy 08/2022; managing with dietary change. Neck fullness (11/25/13) right scalene fat pad/ eval. [facility] Low back pain radiating to both legs (12/09/14) mri : left neural foraminal narrowing L5S1/apparent syrinx of lower thoracic cord- no resp. PT/ :no spinal stenosi/not sx Surgical History Hx of esophagogastroduodenoscopy S/P cataract extraction S/P rotator cuff repair S/P shoulder surgery History of tooth extraction History of total hysterectomy with removal of both tubes and ovaries Family History (Updated 11/13/23 @ 12:41 by Kirsten Winters) Mother , age 72 Essential hypertension Breast cancer Cancer Sister , age 53 Breast cancer Lung cancer Sister , age 74 Liver cancer Lung cancer Father , age 72 Lung cancer Heart disease Brother Diabetes Essential hypertension Heart disease Maternal Grandfather , age 72 Lung cancer Pancreatic cancer Paternal Grandfather , age 42 Heart disease Maternal Grandmother , age 81 Diabetes Essential hypertension Stroke Breast cancer Paternal Grandmother No problems noted. Son No problems noted. Daughter No problems noted. Daughter No problems noted. 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 [employer] Pets and animals: No Sexually active: No Do you think of yourself as: straight/heterosexual Current gender identity: female What is your relationship status?: How often do you talk on the phone with friends or family?: three or more times per week How often do you get together with friends or relatives?: three or more times per week How often do you attend scientologist or tenriism services?: decline to answer Do you belong to any clubs or organized social groups?: yes Panel score (0-1 are the most socially isolated patients): 3 What type of physical activity do you participate in: none Duration: decline to answer Frequency: does not exercise Irene/Nondenominational: Adventist Special irene needs: No Seatbelt use: always Helmet use: No Drive intox or ride w/intox reefer truck driver: No Firearms in home: Yes Firearms unloaded and locked: Yes Do you feel safe at home: Yes Do you feel safe in your relationship?: Yes Victim of physical abuse: No Victim of emotional abuse: No Victim of sexual abuse: No Additional Social history: Enjoys cake decorating, baking.
[2024-04-24] MEDS: Metoclopramide 10 MG/2 ML VIAL IVP (03:11)
--- NOTE | 2024-04-24 03:13 | NUR.NOTE ---
Nursing Note: ANASTACIO from home, the pt states that she began to have NVD tonight. Pt arrived and stated that while she was on the toilet she felt weak and as if she was going to pass out, but assisted herself to the floor. While in the ED the pt stated that she needed to use the BR, commode brought to the room, this nurse sat the pt up, the pt stated she felt very weak and as if she was going to pass out, sitting BP, decreased. pt had syncople episode while sitting on the bed. pt then woke up after a few seconds. pt c/o nausea and still need for the BR. pt readjusted and placed on bed herrera, unable to go. EKG done. IV established and medication given. no relief with zofran, no active vomiting just dry heaving and nausea. Family aware the pt cannot have anything to drink numerous times. IV fluids infusing, IVPB Reglan infusing
--- NOTE | 2024-04-24 03:20 | DI.VRAD_ITS ---
PROCEDURE INFORMATION: Exam: CT Abdomen And Pelvis With Contrast Exam date and time: 04/24/2024 2:15 AM Age: 79 years old Clinical indication: Nausea and vomiting; Patient HX: N/v, diffuse abd tenderness TECHNIQUE: Imaging protocol: Computed tomography of the abdomen and pelvis with contrast. Radiation optimization: All CT scans at this facility use at least one of these dose optimization techniques: automated exposure control; mA and/or kV adjustment per patient size (includes targeted exams where dose is matched to clinical indication); or iterative reconstruction. Contrast material: [id number]; Contrast volume: 100 ml; Contrast route: INTRAVENOUS (IV); COMPARISON: CT THORAX ABD/PEL CTA 07/12/2023 7:02 PM FINDINGS: Limitations: Mild motion artifact. Lungs: Dependent changes are present in the lungs. Diaphragm: Hiatal hernia. Liver: Hepatic steatosis. Gallbladder and biliary ducts: No radiodense gallbladder calculi seen. Pancreas: Fatty infiltration of the pancreas. Spleen: No splenomegaly. Adrenal glands: Adrenal thickening. Kidneys and ureters: No hydronephrosis or evidence for pyelonephritis. Stomach and bowel: No intestinal obstruction is evident. Fluid in nondilated small bowel, nonspecific. Fluid-filled colon. Colonic diverticula. Appendix: No evidence of appendicitis. Intraperitoneal space: No free air. Vasculature: Atherosclerotic changes in the aorta and its branches. Lymph nodes: No acute findings. Urinary bladder: No acute findings. Reproductive: Uterus absent. Bones/joints: No pertinent acute abnormality seen. Soft tissues: No pertinent acute abnormality seen. IMPRESSION: 1. Fluid-filled small and large bowel, suggesting mild inflammation. 2. Additional findings as above. Dictated and Authenticated by: Suzanne Gan MD. Ordering:JULIET Schaffer MD
[2024-04-24 03:30] LABS: Lactate 2.1 mmol/L (<or=2.0)
[2024-04-24 03:52] LABS: Troponin I 13 ng/L (<or=51)
[2024-04-24 05:11] LABS: Lactate 1.8 mmol/L (<or=2.0)
[2024-04-24 05:42] LABS: Troponin I 13 ng/L (<or=51)
[2024-04-24] MEDS: Metoclopramide 10 MG TAB 20 MG PO (06:18)
== END 2024-04-24 06:16 | disposition home or self-care (01) ==
PROVIDERS: Emergency Provider Student in an Organized Health Care Education/Training Program; PCP Family Medicine
DX: R11.2 Nausea with vomiting, unspecified (principal); R19.7 Diarrhea, unspecified; R00.0 Tachycardia, unspecified; I10 Essential (primary) hypertension; I25.2 Old myocardial infarction; K21.9 Gastro-esophageal reflux disease without esophagitis; E03.9 Hypothyroidism, unspecified
CPT/HCPCS: 36415; 80053; 83690; 93005; 96361; 96374; 96375; 99285; 74177; 83605; 83735; 84439; 84443; 84484; 85025; 93010; J0131; J2405; J2765; J3490